=== PATIENT | female | born 1970 | race Caucasian/White ===

== ENCOUNTER 2022-10-17 17:24 | Emergency (ER) | payer OTHER, SELFPAY ==
[2022-10-17 17:28] VITALS: BP 134/86; PULSE 84; RESP 20; TEMP 36.7; O2SAT 96; BMI 21.5
[2022-10-17 18:09] VITALS: PULSE 81; O2SAT 95
[2022-10-17 18:15] VITALS: PULSE 82; O2SAT 95
[2022-10-17 18:30] VITALS: PULSE 77; O2SAT 93
[2022-10-17 18:34] VITALS: PULSE 80; O2SAT 95
[2022-10-17] MEDS: KETOROLAC 30 MG/ML inj 45 MG IVP (18:37)
[2022-10-17] MEDS: LORazepam 2 MG/ML inj 1 MG IVP (18:37)
[2022-10-17] MEDS: 0.9 % SODIUM CHLORIDE 1000 ml 1,000 ML 3000 ML IV (18:38)
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
--- NOTE | 2022-10-17 19:28 | ED.NURSE ---
Patient had a large incontinent episode on the floor after waking up from a deep sleep. Rather than using call button, stood up and tried to urinate in closest container normally used for suction. Patient was assisted with hygiene and returned to bed.
--- NOTE | 2022-10-17 20:13 | ED.NURSE ---
DC pt, friend in room helping pt get dressed. IV removed, cath intact.
== END 2022-10-17 20:25 | disposition home or self-care (01) ==
PROVIDERS: Emergency Provider Family Medicine
DX: G90.50 Complex regional pain syndrome I, unspecified (principal); F43.9 Reaction to severe stress, unspecified
CPT/HCPCS: 93005; 96361; 96374; 96375; 99284; J1885; J2060; J7030

== ENCOUNTER 2023-05-09 20:02 | Outpatient (CLI) | payer MEDICAID, SELFPAY | END 2023-05-09 20:03 | disposition home or self-care (01) | LOC: AMB 05-14 17:32 | PROVIDERS: Visit Provider Internal Medicine | DX: S09.90XA Unspecified injury of head, initial encounter (principal); W07.XXXA Fall from chair, initial encounter; Y92.009 Unspecified place in unspecified non-institutional (private) residence as the place of occurrence of the external cause | CPT/HCPCS: A0998 ==

== ENCOUNTER 2023-05-18 01:56 | Emergency (ER) | payer MEDICAID, SELFPAY ==
[2023-05-18 02:14] VITALS: BP 121/77; PULSE 75; RESP 18; TEMP 36.6; O2SAT 100
--- NOTE | 2023-05-18 02:25 | ED_ITS ---
HPI - General Adult General Chief complaint: Extremity Pain/Injury, Upper Stated complaint: left side numbness Time Seen by Provider: 05/18/23 02:31 Source: patient Mode of arrival: ambulatory Limitations: no limitations History of Present Illness HPI narrative: 52-year-old female presents the emergency department for evaluation of difficulty using her left upper extremity for [address] scanner is down, she was clearly explained this in triage. Discussed that we cannot perform a stroke or TIA workup due to these limitations. She does not want a referral or transfer to a center that can perform a stroke workup and understands the risks and benefits of this. Patient reports that she fell out of her office chair 1 week ago today. She reports that she does take a lot of neurological medications and has had thorough workup for multiple conditions. She reports a history of carpal tunnel and also complex regional pain syndrome. She comes in because it is difficult to use her left wrist but then she is also telling me that her left arm and leg are extremely sensitive to touch. It is clear that as she is explaining this that much of this is a chronic issue that seems to be worsened since the fall. She is concerned about a possible wrist fracture. She has self applied a brace but does not know why her weakness is not improving. She can move the arm at the shoulder and the elbow but notes difficulty abducting her wrist. Has not tried taking any additional pain medication than what she is already prescribed. Denies alcohol or intoxication at the time of the fall. Reports that EMS was called. It sounds as though she declined transfer and they were okay with that based on symptoms on the scene. It is unclear why she has not sought medical care in the last week until coming into the emergency room in the middle of the night. Denies interval worsening. It is a bit difficult to sort out her story is she does go on extensively about chronic carpal tunnel issues and need for repeat surgery on the right side which is non pertinent to her acute left-sided concerns today. Denies medical changes like difficulty speaking, cardiac or pulmonary changes. Notes no difficulty moving her left leg or ambulating but does have extreme tenderness to touch of the skin of the left leg and the left arm. She contradicts herself several times on whether this is chronic or acute. I get the impression it has been worse since the fall. No swelling to the left wrist, she is not able to localize an area of point bony tenderness for me on the wrist per rather reiterates diffuse severe tenderness to touch in the left upper extremity. It seems more localized to the dorsal aspect of the arm than the palmar aspect. She states that her past medical history is notable for chronic pain, sounds like complex regional pain syndrome. Her home medications are verified as accurate as listed in the EMR. Notable for NSAIDs, pretty high dose of gabapentin, amitriptyline, tramadol and Topamax. Other than the pain and arm movement difficulties, states that her medical problems are stable times 12 systems. Related Data Home Medications Medication Instructions Recorded Confirmed amitriptyline 25 mg tablet 25 mg PO DAILY 10/17/22 10/17/22 celecoxib 200 mg capsule 200 mg PO DAILY 10/17/22 10/17/22 cholecalciferol (vitamin D3) 50 2,000 unit PO DAILY 10/17/22 10/17/22 mcg (2,000 unit) capsule (Vitamin D3) gabapentin 300 mg capsule 900 mg PO Q12H 10/17/22 10/17/22 meloxicam 15 mg tablet 15 mg PO DAILY 10/17/22 10/17/22 oxybutynin chloride 5 mg 5 mg PO DAILY 10/17/22 10/17/22 tablet,extended release 24 hr progesterone micronized 100 mg 100 mg PO HS 10/17/22 10/17/22 capsule (Prometrium) topiramate 50 mg capsule,extended 50 mg PO DAILY 10/17/22 10/17/22 release 24 hr tramadol 50 mg tablet 50 mg PO DAILY 10/17/22 10/17/22 Allergies Allergy/AdvReac Type Severity Reaction Status Date / Time prednisone Allergy Verified 10/17/22 17:36 [facility] Social History Smoking Status: Current every day smoker What tobacco products do you use: cigarettes Do you use any of these nicotine containing products: None Second hand tobacco smoke exposure: No How often do you have a drink containing alcohol: never AUDIT-C Alcohol total score: 0 Non-prescribed substance use: denies use Exam Const: Vital Signs, click to edit/add: Vital Signs - 24 hr 05/18/23 02:14 05/18/23 04:46 Temperature 97.8 F Pulse Rate [Pulse Oximeter] 75 71 Respiratory Rate 18 14 Blood Pressure [Ri ght Upper Arm] 121/77 99/62 Pulse Oximetry 100 93 Oxygen Delivery Me thod Room Air Room Air Documenting provider has reviewed patient's vital signs: yes Other: Has difficulty telling a longitudinal story. Difficulty sorting out acute versus chronic symptoms. She is however very polite and cooperative. Appears well nourished, well hydrated and nontoxic. No signs of intoxication. HENMT: Common normals: normocephalic and head/scalp atraumatic Head and scalp: normocephalic and atraumatic Mouth: oral and palatal mucosa normal Eye: Common normals: conjunctivae normal General eye: normal appearance of both eyes Conjunctiva: conjunctiva(e) normal Neck & C-Spine: Other: Cervical spine exam is difficult. There is some chronic increased cervical lordosis but also tenderness to palpation of the skin, paraspinal muscles throughout the exam field. There was no obvious step-off, deformity of the cervical spine or point bony tenderness that was out of proportion to all of the other areas tested. She does have normal rotation of the neck but reports pain with movement. Spondylosis testing was negative. Resp: Common normals: normal respiratory effort, no use of accessory muscles and clear to auscultation bilaterally Effort & inspection: able to speak in complete sentences Auscultation: clear to auscultation bilaterally Cardio: Common normals: regular rate, regular rhythm, S1 normal heart sound, S2 normal heart sound and no murmurs Rate: regular rate Rhythm: regular rhythm Heart sounds: S1 normal and S2 normal Extremity: Other: The left shoulder has normal range of motion and strength. Left elbow has normal range of motion and strength. She has difficulty dorsiflexing the left wrist and difficulty with abduction and adduction of fingers. She is tender to palpation of the skin throughout the arm, making exam difficult. Distracting her to reassess strength in the dorsal aspect of the forearm and hand is difficult due to her sensitivity to touch. There are signs of chronic muscle wasting making me question the chronicity of this. She can freely move the right upper extremity with no difficulty but does report some pain with doing so. The left lower extremity can flex and move normally on command and I do observe her walking normally into exam room 8. Psych: Attitude: engaged Insight: fair Judgement: fair Skin: Common normals: no rashes or lesions noted General skin exam: no rashes or lesions noted Course Course ED Course: Differential diagnosis includes stroke, cervical injury, peripheral nerve injury, chronic peripheral neuropathy, sprain of the wrist, elbow injury, multiple others. It is difficult to follow her story as she talks about both acute and chronic things with mixed timeline. She is restful and comfortable. She does not need any interventions for pain at this time. Recommended x-ray of the wrist to look into further possible injury. Reiterated again that we do not have the ability to perform stroke and further neurological workup such as on her cervical spine. I did offer transfer to a medical center that would have these capabilities and she has declined this. She does verbalize understanding and agreement of this choice. Reevaluation(s) Time of Reevaluation #1: 05:42 Reevaluation #1: Reviewed x-ray findings with patient. Reiterated again that I have concerns with long-term neurological issues in her arm. These do seem more chronic than acute. She verbalizes understanding uneven gives me some reassurance that she has been told this before as well. There are no signs of acute bony injury to the hand or wrist. She needs further neurological workup, none of which will change in the middle of the night a week after this injury. She will make her follow-up with her primary care provider and schedule appropriate further neurological testing and workup. All questions answered. She verbalizes understanding and agreement. Vital Signs Vital signs: Initial Vital Signs Temperature 97.8 F 05/18/23 02:14 Temperature Source Temporal Artery Scan 05/18/23 02:14 Pulse Rate 75 05/18/23 02:14 Respiratory Rate 18 05/18/23 02:14 Blood Pressure 121/77 05/18/23 02:14 Blood Pressure Mean 91 05/18/23 02:14 Blood Pressure Position Supine 05/18/23 02:14 Pulse Oximetry 100 05/18/23 02:14 Oxygen Delivery Method Room Air 05/18/23 02:14 Vital Signs Temperature 97.8 F 05/18/23 02:14 Pulse Rate 75 05/18/23 02:14 Respiratory Rate 18 05/18/23 02:14 Blood Pressure 121/77 05/18/23 02:14 Pulse Oximetry 100 05/18/23 02:14 Oxygen Delivery Method Room Air 05/18/23 02:14 Temperature 97.8 F 05/18/23 02:14 Pulse Rate 71 05/18/23 04:46 Respiratory Rate 14 05/18/23 04:46 Blood Pressure 99/62 05/18/23 04:46 Pulse Oximetry 93 05/18/23 04:46 Oxygen Delivery Method Room Air 05/18/23 04:46 Discharge Plan Discharge Clinical Impression: Sprain and strain of wrist Patient Disposition: Home, Self-Care Condition: Stable Instructions: Wrist Sprain (ED) Additional Instructions: As we discussed, we do not have the ability to do a full neurological workup in the emergency department tonight because our CT scanner is down. You were agreeable to a limited workup because of this. There are no signs of fracture of your wrist on your x-ray. I do have concerns for neurological issues in your arm. These seem more chronic to me than acute. I would recommend that you make a follow-up appointment with your primary care provider and schedule and EMG of the left upper extremity. This will give us more information about the abnormal sensation and nerve function in your forearm. Since the injury has been over a week, there is nothing that needs to be done emergently in the middle of the night but additional workup is needed. Please schedule the appropriate follow- up appointment as soon as possible. In the meantime, it is okay to use Tylenol and/or ibuprofen. I would like for you to continue to wear the brace for another 7 days, then remove. If you have sudden worsening in your neurological function, please come back to the emergency department. Activity Level: Activity as Tolerated Discharge Diet: Regular Prescriptions: No Action meloxicam 15 mg tablet 15 mg PO DAILY progesterone micronized [Prometrium] 100 mg capsule 100 mg PO HS Rx Instructions: off 7 days; repeat cycle tramadol 50 mg tablet 50 mg PO DAILY gabapentin 300 mg capsule 900 mg PO Q12H cholecalciferol (vitamin D3) [Vitamin D3] 50 mcg (2,000 unit) capsule 2,000 unit PO DAILY oxybutynin chloride 5 mg tablet extended release 24hr 5 mg PO DAILY celecoxib 200 mg capsule 200 mg PO DAILY amitriptyline 25 mg tablet 25 mg PO DAILY topiramate 50 mg capsule,extended release 24hr 50 mg PO DAILY Follow Up/Referrals: Provider,Not a Local [Primary Care Provider] - Stand Alone Forms: [employer] Info Instructions
--- NOTE | 2023-05-18 02:57 | CRLHL7_ITS ---
For Patients: As a result of the Century Cures Act, medical imaging exams and procedure reports are released immediately into your electronic medical record. You may view this report before your referring provider. If you have questions, please contact your health care provider. INDICATION: Fall, wrist pain. COMPARISON: None available. TECHNIQUE: Three views of the left wrist. FINDINGS: Alignment is anatomic and joint spaces are maintained. No acute fracture. Bone density is normal. Soft tissues are unremarkable. IMPRESSION: No acute osseous abnormality identified. Radiographs have low sensitivity in detecting acute scaphoid fractures. If the patient has snuffbox tenderness, recommend immobilization and repeat radiographs in 10-14 days. Alternatively, MRI could be performed to evaluate for occult scaphoid fracture. Dictated by Raisa Knight MD @ 05/18/2023 5:37:40 AM (Electronically Signed)
[2023-05-18 04:46] VITALS: BP 99/62; PULSE 71; RESP 14; O2SAT 93
--- NOTE | 2023-05-18 05:55 | PC.NURSE ---
pateint DC ambulatory w/o difficulty, patient given ride by her friend. stated understanding to DC instructions w/o further question
== END 2023-05-18 05:48 | disposition home or self-care (01) ==
PROVIDERS: Emergency Provider Family Medicine
DX: S63.502A Unspecified sprain of left wrist, initial encounter (principal); W19.XXXA Unspecified fall, initial encounter
CPT/HCPCS: 73110; 99283

== ENCOUNTER 2023-12-23 15:28 | Outpatient (CLI) | payer MEDICAID, SELFPAY ==
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
--- OUTSIDE RECORDS SUMMARY | 2023-12-24 17:40 | XMS_ITS | Encounter Summary ---
Author Name Unknown Organization [facility] Address [address] [place] [address] Care Team Providers Care Console Operator Name Role Phone Asif Genao MD Primary Care Provider [phone] Encounter Details Date Type Department Care Team (Latest Contact Info) Description 05/10/1996 Orders Only Kendell Rahman [facility] [address] [facility] [address] Social History Tobacco Use Types Packs/Day Years Used Date Smoking Tobacco: Never Assessed Sex and Gender Information Value Date Recorded Sex Assigned at Not on file Gender Identity Not on file Sexual Orientation Not on file documented as of this encounter Plan of Treatment Not on file documented as of this encounter Visit Diagnoses Not on filedocumented in this encounter Care Teams Console Operator Relationship Specialty [place] [address] [place], [place] [id number] PCP - General Family Practice 08/05/23 documented as of this encounter
--- OUTSIDE RECORDS SUMMARY | 2023-12-24 17:40 | XMS_ITS | Encounter Summary ---
Author Name Unknown Organization [facility] Address [address] [place] [address] Care Team Providers Care Diesel Dinkey Engineer Name Role Phone Asif Genao MD Primary Care Provider [phone] Encounter Details Date Type Department Care Team (Latest Contact Info) Description 08/21/1995 Orders Only Randell Gasca MD [facility] [address] [place] [address] Social History Tobacco Use Types Packs/Day Years Used Date Smoking Tobacco: Never Assessed Sex and Gender Information Value Date Recorded Sex Assigned at Not on file Gender Identity Not on file Sexual Orientation Not on file documented as of this encounter Plan of Treatment Not on file documented as of this encounter Visit Diagnoses Not on filedocumented in this encounter Care Teams Diesel Dinkey Engineer Relationship Specialty [place] [address] [place] [address] PCP - General Family Practice 08/05/23 documented as of this encounter
--- OUTSIDE RECORDS SUMMARY | 2023-12-24 17:40 | XMS_ITS | Clinical Summary ---
Author Name Unknown Organization [facility] Address [address] [place] [address] Care Team Providers Care Produce Service Team Member Name Role Phone [facility] Primary Care Provider Allergies Active Allergy Reactions Criticality Noted Date Comments Prednisolone Anaphylaxis High 07/15/2019 Medications Medication Sig Dispensed Refills Start Date End Date Status ALPRAZolam (XANAX) 1 MG tablet Take 1 mg by mouth 4 times daily as needed for anxiety Active ARIPiprazole (ABILIFY) 2 MG tablet Take 2 mg by mouth daily Active gabapentin (NEURONTIN) 300 MG capsule Take 900 mg by mouth 3 times daily as needed for neuropathic pain Active traZODone (DESYREL) 50 MG tablet Take 50 mg by mouth at bedtime Active cyclobenzaprine (FLEXERIL) 10 MG tablet Take 10 mg by mouth every evening as needed for muscle spasms Active DULoxetine (CYMBALTA) 60 MG capsule Take 60 mg by mouth daily Active acetaminophen (TYLENOL) 325 MG tablet Take 650 mg by mouth every 6 hours as needed for mild pain 07/31/2020 Active naloxone (NARCAN) 4 MG/0.1ML nasal spray Hickman 1 spray (4 mg) into one nostril alternating nostrils as needed for opioid reversal every 2-3 minutes until assistance arrives 0.2 mL 12/12/2021 Active oxybutynin (DITROPAN) 5 MG tablet Take 5 mg by mouth daily as needed Active estradiol (ESTRACE) 0.5 MG tablet Take 0.5 mg by mouth as needed (menopause symptoms) Active NONFORMULARY Apply topically as needed (apply topically twice daily to painful spots on right wrist and feet) RUBINA 2 DHEERAJ 5 LIDO HCL 5% CRM- compounded drug Active ciprofloxacin (CIPRO) 500 MG tabletIndications:U rinary tract infection with hematuria, site unspecified Take 1 tablet (500 mg) by mouth 2 times daily 20 tablet 06/27/2023 Active Active Problems Problem Noted Date Diagnosed Date Thrombocytopenia (H24) 06/25/2023 Encephalopathy 06/25/2023 Septic shock 06/25/2023 Pneumonia of left lower lobe due to infectious o rganism 06/25/2023 Closed fracture of multiple ribs of left side, initial encounter 07/29/2020 Major depressive disorder, recurrent, mild (H24) 10/05/2018 History of ITP 01/27/2017 Migraine 01/27/2017 Drug abuse 12/15/2016 Overview: Received note from [facility]. Patient seen on 12/11/16 for drug use. Relapsed with methamphetamine and alcohol. Outpatient chemical dependency treatment recommended. Patient has stopped taking medications from mental health. Backache 12/07/2013 Anxiety 06/26/2013 Graves' disease 06/26/2013 Idiopathic thrombocytopenic purpura 06/26/2013 Von Willebrand disease 06/26/2013 Overview: Overview: She was given the diagnosis of vWD in [place]. However, testing here in 04/2008 and 07/2013 was normal, making vWD unlikely. She was given the diagnosis of vWD in [place]. However, testing here in 04/2008 and 07/2013 was normal, making vWD unlikely. Agoraphobia with panic disorder 04/17/2008 Other bipolar disorder 04/17/2008 Family History Relation Status Comments Brother Alive Daughter Alive Father Alive Maternal Grandfather Maternal Grandmother Mother Other Alive Paternal Grandfather Paternal Grandmother Sister Social History Tobacco Use Types Packs/Day Years Used Date Smoking Tobacco: Every Day Cigarettes Smokeless Tobacco: Never Alcohol Use Standard Drinks/Week Comments Yes 0 (1 standard drink = 0.6 oz pur e alcohol) very rarely PHQ-2 Answer Date Recorded PHQ-2 Score 6 12/09/2022 Adolescent Education Answer Date Record ed Getting School Help Needed Not on file 05/22 Sex and Gender Information Value Date Recorded Sex Assigned at Female 12/09/2022 12:28 PM CDT Gender Identity Female 12/09/2022 12:28 PM CDT Sexual Orientation Straight 12/09/2022 12 :28 PM CDT Last Filed Vital Signs Vital Sign Reading Time Taken Comments Blood Pressure 136/88 06/27/2023 12:00 PM DEVELOPMENT INTERN Pulse 73 06/27/2023 12:00 PM DEVELOPMENT INTERN Temperature 36.9 ??C (98.4 ??F) 06/27/2023 12:[address] Respiratory Rate 30 06/27/2023 10:00 AM DEVELOPMENT INTERN Oxygen Saturation 88% 06/27/2023 12:00 PM DEVELOPMENT INTERN Inhaled Oxygen Concentration - - Weight 59 kg (130 lb) 06/25/2023 9:24 AM DEVELOPMENT INTERN Height 162.6 cm (5' 4) 12/09/2022 10:40 AM CDT Body Mass Index 22.31 12/09/2022 10:40 AM CDT Plan of Treatment Health Maintenance Due Date Last Done Comments ADVANCE CARE PLANNING 1968 ANNUAL REVIEW OF HM ORDERS 1968 CT COLONOGRAPHY 1968 FIT 1968 FLEX SIG 1968 MAMMO SCREENING 1968 NICOTINE/TOBACCO CESSATION COUNSELING Q 1 YR 1968 sDNA (Cologuard) 1968 Pneumococcal Vaccine: Pediatrics (0 to 5 Years) and At-Risk Patients (6 to 64 Years) (1 of 2 - PCV) 1974 COLONOSCOPY 1978 COLORECTAL CANCER SCREENING 1978 HIV SCREENING 1983 HEPATITIS C SCREENING 1986 PAP 1989 DTAP/TDAP/TD IMMUNIZATION (1 - Tdap) 09/06/1997 09/05/1997 LIPID 2008 ZOSTER IMMUNIZATION (1 of 2) 2018 HEPATITIS B IMMUNIZATION (2 of 2 - CpG 2-dose series) 11/15/2022 10/18/2022 COVID-19 Vaccine (1 - season) 2023 YEARLY PREVENTIVE VISIT 10/19/2023 10/18/2022 INFLUENZA VACCINE (Season Ended) 2024 05/09/2015 LUNG CANCER SCREENING 06/25/2024 06/25/2023 , 07/29/2020, 12/11/2019 GLUCOSE 06/27/2026 06/27/2023, 06/10, 06/27/2023, Additional history exists HPV IMMUNIZATION Aged Out No longer e ligible based on patient's age to complete this topic IPV IMMUNIZATION Aged Out No longer e ligible based on patient's age to complete this topic MENINGITIS IMMUNIZATION Aged Out No l onger eligible based on patient's age to complete this topic RSV MONOCLONAL ANTIBODY Aged Out No l onger eligible based on patient's age to complete this topic Medical Devices Implanted Type Area Care Transport Nurse Device Identifier Shelf Expiration Date Model / Serial / Lot Trial Lead Kit Implanted:Qty: 1 on 07/15/2019 by Ajith Laura MD at [facility] Right: Back [employer] 05/31/2021 DE-2316-50 E / [id number] / Trial Lead Kit Implanted:Qty: 1 on 07/15/2019 by Ajith Laura MD at [facility] Right: Back [employer] 06/01/2021 DE-2316-50 E / [id number] / Procedures Procedure Name Priority Date/Time Associated Diagnosis Comments GLUCOSE BY METER Routine 06/27/2023 4:[address] CHEST PULMONARY EMBOLISM W CONTRAST STAT 06/25/2023 5:56 PM DEVELOPMENT INTERN from Last 3 Months or Most Recently Relevant to Health Maintenance Results * (ABNORMAL) Glucose by meter (06/27/2023 4:15 AM DEVELOPMENT INTERN) [facility] GLUCOSE BY METER POCT 113(H) 70 - 99 mg/dL 06/27/2023 4:21 AM DEVELOPMENT INTERN LABORATORY POC Blood, Capillary BLOOD SPECIMEN / Unknown 06/27/2023 4:15 AM DEVELOPMENT INTERN 06/27/2023 4:21 AM DEVELOPMENT INTERN Lee HOWELL POCT RH LABORATORY POC [facility] Acute Care Lab [address] [facility] Lab (1st floor, no room number) [place] [address], [facility] [phone] * CT Chest Pulmonary Embolism w Contrast (06/25/2023 5:56 PM DEVELOPMENT INTERN) Anatomical Region Laterality Modality Chest, SUBRAD CT BODY, UMP CT CHEST Computed Tomography 06/25/2023 5:56 PM DEVELOPMENT INTERN Impressions 06/25/2023 6:31 PM DEVELOPMENT INTERN IMPRESSION: 1. ??No evidence for pulmonary emboli. 2. ??Atelectasis involving portions of both upper and lower lobes. Otherwise no acute pulmonary disease. 3. ??Stable, enlarged thyroid gland. 4. ??Hypervascular lesions peripheral cortex of both kidneys could be related to retained contrast from CT abdomen and pelvis performed earlier today. Acute tubular necrosis could potentially have this appearance. Correlation with renal function tests recommended. Narrative 06/25/2023 6:31 PM DEVELOPMENT INTERN EXAM: CT CHEST PULMONARY EMBOLISM W CONTRAST LOCATION: [facility] DATE: 06/25/2023 INDICATION: hypoxia, hypotension COMPARISON: CTA chest 07/29/[address] abdomen and pelvis from earlier today. TECHNIQUE: CT chest pulmonary angiogram during arterial phase injection of IV contrast. Multiplanar reformats and MIP reconstructions were performed. Dose reduction techniques were used. CONTRAST: 52mL Isovue 370 FINDINGS: ANGIOGRAM CHEST: Pulmonary arteries are normal caliber and negative for pulmonary emboli. Thoracic aorta is negative for dissection. No CT evidence of right heart strain. LUNGS AND PLEURA: Moderate dependent atelectasis posterior aspects of both lower lobes, with less extensive dependent atelectasis in the upper lobes. No acute infiltrates or pleural effusions. A few tiny pulmonary nodules are unchanged. MEDIASTINUM/AXILLAE: A few borderline-enlarged mediastinal and bilateral hilar nodes minimally changed. Diffuse enlargement of the thyroid gland, unchanged. CORONARY ARTERY CALCIFICATION: Minimal UPPER ABDOMEN: Numerous small hyperdensities within the peripheral cortex of both kidneys are not seen on delayed imaging on dedicated abdomen exam from today. Small cyst upper pole right kidney. MUSCULOSKELETAL: Breast implants. Procedure Note [place] MD - 06/25/2023 EXAM: CT CHEST PULMONARY EMBOLISM W CONTRAST LOCATION: [facility] DATE: 06/25/2023 INDICATION: hypoxia, hypotension COMPARISON: CTA chest 07/29/[address] abdomen and pelvis from earliertoday. TECHNIQUE: CT chest pulmonary angiogram during arterial phase injection ofIV contrast. Multiplanar reformats and MIP reconstructions were performed.Dose reduction techniques were used. CONTRAST: 52mL Isovue 370 FINDINGS: ANGIOGRAM CHEST: Pulmonary arteries are normal caliber and negative forpulmonary emboli. Thoracic aorta is negative for dissection. No CTevidence of right heart strain. LUNGS AND PLEURA: Moderate dependent atelectasis posterior aspects of bothlower lobes, with less extensive dependent atelectasis in the upper lobes.No acute infiltrates or pleural effusions. A few tiny pulmonary nodulesare unchanged. MEDIASTINUM/AXILLAE: A few borderline-enlarged mediastinal and bilateralhilar nodes minimally changed. Diffuse enlargement of the thyroid gland,unchanged. CORONARY ARTERY CALCIFICATION: Minimal UPPER ABDOMEN: Numerous small hyperdensities within the peripheral cortexof both kidneys are not seen on delayed imaging on dedicated abdomen examfrom today. Small cyst upper pole right kidney. MUSCULOSKELETAL: Breast implants. IMPRESSION: 1. No evidence for pulmonary emboli. 2. Atelectasis involving portions of both upper and lower lobes.Otherwise no acute pulmonary disease. 3. Stable, enlarged thyroid gland. 4. Hypervascular lesions peripheral cortex of both kidneys could berelated to retained contrast from CT abdomen and pelvis performed earliertoday. Acute tubular necrosis could potentially have this appearance.Correlation with renal function tests recommended. Tommy Dueñas MD [facility] [place] ORDER[place]LES from Last 3 Months or Most Recently Relevant to Health Maintenance Advance Directives For more information, please contact: [phone] * Full Code (Latest Code Status on File) Date Activated Date Inactivated Comments 06/25/2023 7:41 PM 06/27/2023 6:02 PM All basic and advanced life-sustaining interventions are performed as appropriate Question Answer Comments Code status determined by: Discussion with cke nt/ legal decision maker * Full Code Date Activated Date Inactivated Comments 07/29/2020 8:18 PM 07/31/2020 6:43 PM All basic and advanced life-sustaining interventions are performed as appropriate Question Answer Comments Code status determined by: Discussion with cke nt/ legal decision maker Care Teams Produce Service Team Member Relationship Specialty Start Date End Date [facility] [id number] [place] [address] PCP - General 05/22/23
--- OUTSIDE RECORDS SUMMARY | 2023-12-24 17:40 | XMS_ITS | Encounter Summary ---
Author Name Unknown Organization [facility] Address [address] [place] [address] Care Team Providers Care Dump Motorman Name Role Phone Asif Genao MD Primary Care Provider Encounter Details Date Type Department Care Team (Latest Contact Info) Description 05/31/1996 Orders Only Ángel Moe MD Social History Tobacco Use Types Packs/Day Years Used Date Smoking Tobacco: Never Assessed Sex and Gender Information Value Date Recorded Sex Assigned at Not on file Gender Identity Not on file Sexual Orientation Not on file documented as of this encounter Plan of Treatment Not on file documented as of this encounter Visit Diagnoses Not on filedocumented in this encounter Care Teams Dump Motorman Relationship Specialty [place] [address] [place] [address] PCP - General Family Practice 08/05/23 documented as of this encounter
--- OUTSIDE RECORDS SUMMARY | 2023-12-24 17:40 | XMS_ITS | Encounter Summary ---
Author Name Unknown Organization [facility] Address [address] [place] [address] Care Team Providers Care Pan Cleaner Name Role Phone Asif Genao MD Primary Care Provider [phone] Encounter Details Date Type Department Care Team (Latest Contact Info) Description 06/14/1997 Orders Only Brian Augustin MD [address] [place] [address] Social History Tobacco Use Types Packs/Day Years Used Date Smoking Tobacco: Never Assessed Sex and Gender Information Value Date Recorded Sex Assigned at Not on file Gender Identity Not on file Sexual Orientation Not on file documented as of this encounter Plan of Treatment Not on file documented as of this encounter Visit Diagnoses Not on filedocumented in this encounter Care Teams Pan Cleaner Relationship Specialty [place] [address] [place] [address] PCP - General Family Practice 08/05/23 documented as of this encounter
--- OUTSIDE RECORDS SUMMARY | 2023-12-24 17:40 | XMS_ITS | Encounter Summary ---
Author Name Unknown Organization [facility] Address [address] [place] [address] Care Team Providers Care Chief Bank Examiner Name Role Phone Asif Genao MD Primary Care Provider [phone] Encounter Details Date Type Department Care Team (Latest Contact Info) Description 11/24/1995 Orders Only Kendell Rahman [facility] [address] [facility] [address] Social History Tobacco Use Types [...] on filedocumented in this encounter Care Teams Chief Bank Examiner Relationship Specialty [place] [address] [place], [place] [id number] PCP - General Family Practice 08/05/23 documented as of this encounter
--- OUTSIDE RECORDS SUMMARY | 2023-12-24 17:40 | XMS_ITS | Referral Summary ---
Author Name Unknown Organization [facility] Address [address] [place] [address] Care Team Providers Care Cash Teller Name Role Phone [facility] Primary Care Provider Allergies Active Allergy [...] Active naloxone (NARCAN) 4 MG/0.1ML nasal spray Anderson 1 spray (4 mg) into one nostril [...] Drug abuse 12/15/2016 Overview: Received note from [facility]. Patient seen on 12/11/16 for drug use. Relapsed with methamphetamine and alcohol. Outpatient chemical dependency treatment recommended. Patient has stopped taking medications from mental health. Backache 12/07/2013 Anxiety 06/26/2013 Graves' disease 06/26/2013 Idiopathic thrombocytopenic purpura 06/26/2013 Von Willebrand disease 06/26/2013 Overview: Overview: She was given the diagnosis of vWD in [place]. However, testing here in 04/2008 and 07/2013 was normal, making vWD unlikely. She was given the diagnosis of vWD in [place]. However, testing here in 04/2008 and 07/2013 was normal, making vWD unlikely. Agoraphobia with panic disorder 04/17/2008 Other bipolar disorder 04/17/2008 Social History Tobacco Use Types Packs/Day Years [...] Comments Blood Pressure 136/88 06/27/2023 12:00 PM CITY MAINTENANCE MANAGER Pulse 73 06/27/2023 12:00 PM CITY MAINTENANCE MANAGER Temperature 36.9 ??C (98.4 ??F) 06/27/2023 12:[address] Respiratory Rate 30 06/27/2023 10:00 AM CITY MAINTENANCE MANAGER Oxygen Saturation 88% 06/27/2023 12:00 PM CITY MAINTENANCE MANAGER Inhaled Oxygen Concentration - - Weight 59 kg (130 lb) 06/25/2023 9:24 AM CITY MAINTENANCE MANAGER Height 162.6 cm (5' 4) 12/09/2022 10:40 AM CDT Body Mass Index 22.31 12/09/2022 10:40 AM CDT Plan of Treatment Not on file Medical Devices Implanted Type Area Engineering Instructor Device Identifier Shelf Expiration Date Model / Serial / Lot Trial Lead Kit Implanted:Qty: 1 on 07/15/2019 by Ajith Laura MD at [facility] Right: Back [employer] 05/31/2021 WI-2316-50 E / [id number] / Trial Lead Kit Implanted:Qty: 1 on 07/15/2019 by Ajith Laura MD at [facility] Right: Back [employer] 06/01/2021 WI-2316-50 E / [id number] / Procedures Procedure Name Priority Date/Time Associated Diagnosis Comments GLUCOSE BY METER Routine 06/27/2023 4:15 AM CITY MAINTENANCE MANAGER CT CHEST PULMONARY EMBOLISM W CONTRAST STAT 06/25/2023 5:56 PM CITY MAINTENANCE MANAGER from Last 3 Months or Most Recently Relevant to Health Maintenance Results * (ABNORMAL) Glucose by meter (06/27/2023 4:15 AM CITY MAINTENANCE MANAGER) GLUCOSE BY METER POCT 113(H) 70 - 99 mg/dL 06/27/2023 4:21 AM CITY MAINTENANCE MANAGER RH LABORATORY POC Blood, Capillary BLOOD SPECIMEN / Unknown 06/27/2023 4:15 AM CITY MAINTENANCE MANAGER 06/27/2023 4:21 AM CITY MAINTENANCE MANAGER Lee BEARD - DANTE POCT LABORATORY [facility] Acute Care Lab [address] Lab (1st floor, no room number) [place] [address], [facility] [phone] * CT Chest Pulmonary Embolism w Contrast (06/25/2023 5:56 PM CITY MAINTENANCE MANAGER) Anatomical Region Laterality Modality Chest, SUBRAD CT BODY, UMP CT CHEST Computed Tomography 06/25/2023 5:56 PM CITY MAINTENANCE MANAGER Impressions 06/25/2023 6:31 PM CITY MAINTENANCE MANAGER IMPRESSION: 1. ??No evidence for pulmonary emboli. [...] function tests recommended. Narrative 06/25/2023 6:31 PM CITY MAINTENANCE MANAGER EXAM: CT CHEST PULMONARY EMBOLISM W CONTRAST LOCATION: [facility] DATE: 06/25/2023 INDICATION: hypoxia, hypotension COMPARISON: CTA [...] CT CHEST PULMONARY EMBOLISM W CONTRAST LOCATION: [facility] DATE: 06/25/2023 INDICATION: hypoxia, hypotension COMPARISON: CTA [...] renal function tests recommended. Tommy Dueñas MD IMG CT ORDERABLES from Last 3 Months or Most Recently Relevant to Health Maintenance Advance Directives For more information, please contact: [phone] * Full Code (Latest Code Status on File) Date Activated Date Inactivated Comments 06/25/2023 7:41 PM 06/27/2023 6:02 PM All basic and advanced life-sustaining interventions are performed as appropriate Question Answer Comments Code status determined by: Discussion with soledad nt/ legal decision maker * Full Code Date Activated Date Inactivated Comments 07/29/2020 8:18 PM 07/31/2020 6:43 PM All basic and advanced life-sustaining interventions are performed as appropriate Question Answer Comments Code status determined by: Discussion with soledad nt/ legal decision maker Care Teams Cash Teller Relationship Specialty Start Date End Date [facility] [id number] [place] [id number] PCP - General 05/22/23
--- OUTSIDE RECORDS SUMMARY | 2023-12-24 17:40 | XMS_ITS | Encounter Summary ---
Author Name Unknown Organization [facility] Address [address] [place] [address] Care Team Providers Care Tire Wrapper Name Role Phone Asif Genao MD Primary Care Provider [phone] Encounter Details Date Type Department Care Team (Latest Contact Info) Description 01/25/1997 Orders Only Dasia Mendez, FINISH OPENER, LIGHT BULB REPLACER [address] [place] [address] Social History Tobacco Use Types Packs/Day Years Used Date Smoking Tobacco: Never Assessed Sex and Gender Information Value Date Recorded Sex Assigned at Not on file Gender Identity Not on file Sexual Orientation Not on file documented as of this encounter Plan of Treatment Not on file documented as of this encounter Visit Diagnoses Not on filedocumented in this encounter Care Teams Tire Wrapper Relationship Specialty [place] [address] [place] [address] PCP - General Family Practice 08/05/23 documented as of this encounter
--- OUTSIDE RECORDS SUMMARY | 2023-12-24 17:40 | XMS_ITS | Encounter Summary ---
Author Name Unknown Organization [facility] Address [address] [place] [address] Care Team Providers Care Bulldozer Mechanic Name Role Phone Asif Genao MD Primary Care Provider Encounter Details Date Type Department Care Team (Latest Contact Info) Description 11/16/1996 Orders Only Emmanuel Roberts MD Social History Tobacco Use Types Packs/Day Years Used Date Smoking Tobacco: Never Assessed Sex and Gender Information Value Date Recorded Sex Assigned at Not on file Gender Identity Not on file Sexual Orientation Not on file documented as of this encounter Plan of Treatment Not on file documented as of this encounter Visit Diagnoses Not on filedocumented in this encounter Care Teams Bulldozer Mechanic Relationship Specialty [place] [address] [place] [address] PCP - General Family Practice 08/05/23 documented as of this encounter
--- OUTSIDE RECORDS SUMMARY | 2023-12-24 17:40 | XMS_ITS | Encounter Summary ---
Author Name Unknown Organization [facility] Address [address] [address] Care Team Providers Care Tester Regulator Name Role Phone Asif Genao MD Primary Care Provider [phone] Encounter Details Date Type Department Care Team (Latest Contact Info) Description 07/14/1996 Orders Only Brian Augustin MD [address] [place] [address] Social History Tobacco Use Types Packs/Day Years Used Date Smoking Tobacco: Never Assessed Sex and Gender Information Value Date Recorded Sex Assigned at Not on file Gender Identity Not on file Sexual Orientation Not on file documented as of this encounter Plan of Treatment Not on file documented as of this encounter Visit Diagnoses Not on filedocumented in this encounter Care Teams Tester Regulator Relationship Specialty [place] [address] [place] [address] PCP - General Family Practice 08/05/23 documented as of this encounter
--- OUTSIDE RECORDS SUMMARY | 2023-12-24 17:40 | XMS_ITS | Encounter Summary ---
Author Name Unknown Organization [facility] Address [address] [place] [address] Care Team Providers Care Furrier Apprentice Name Role Phone Asif Genao MD Primary Care Provider Encounter Details Date Type Department Care Team (Latest Contact Info) Description 07/16/1995 Orders Only Edson Brownlee Social History Tobacco Use Types Packs/Day Years Used Date Smoking Tobacco: Never Assessed Sex and Gender Information Value Date Recorded Sex Assigned at Not on file Gender Identity Not on file Sexual Orientation Not on file documented as of this encounter Plan of Treatment Not on file documented as of this encounter Visit Diagnoses Not on filedocumented in this encounter Care Teams Furrier Apprentice Relationship Specialty [place] [address] [place] [address] PCP - General Family Practice 08/05/23 documented as of this encounter
--- OUTSIDE RECORDS SUMMARY | 2023-12-24 17:40 | XMS_ITS | Encounter Summary ---
Author Name Unknown Organization [place] Address [facility] [place] [address] Care Team Providers Care Precision Assembler Name Role Phone Naif Burroughs MD Primary Care Provider Unavailable Clinic, [facility] Primary Care Prov ider Clinic, [facility] Primary Care Provider Encounter Details Date Type Department Care Team ([facility] st Contact Info) Description 12/01/[address] [facility] Behavioral Health Intake [address] [place] [address] Generic, Behavioral Intake, Social History Tobacco Use Types Packs/Day Years Used Date Smoking Tobacco: Every Day Cigarettes Smokeless Tobacco: Never Alcohol Use Standard Drinks/Week Comments Yes 0 (1 standard drink = 0.6 oz pur e alcohol) very rarely Sex and Gender Information Value Date Recorded Sex Assigned at Female 12/09/2022 12:28 PM CDT Gender Identity Female 12/09/2022 12:28 PM CDT Sexual Orientation Straight 12/09/2022 12 :28 PM CDT documented as of this encounter Miscellaneous Notes * Telephone Encounter - Zo Velez, SKYLER - 12/12/2022 10:25 AM CDT The pt's My Chart is pending and so the following was sent through secure e-mail: 12/12/2022 Mariann Aguirre, It was a real pleasure meeting with you for your substance use assessment on 12/09/2022. Based on your evaluation as well as collateral information, the recommendations are as follows: ?? Abstain from the use of alcohol and all other mood-altering drugs except those prescribed by a Doctor. ?? Follow all conditions of the court including participation in the MADD panel or the Driving withCare Class if required . ?? Participate in ongoing, weekly, individual therapy(resources provided and referral made to [facility] Clinics). ?? Discuss long-term use of RX Xanax and your medication regimen with your medical providers. ?? Should you struggle with any abuse of alcohol or drugs in the future, consider an updated assessment and a higher level of care. A referral has been to [facility] for individual therapy. If you do not hear from Intake, you can call them at [phone] to be placed on the waiting list. Other resources have also been sent to you via secure e-mail. You can also check with [facility] as to any other in-network providers. Thanks, and wishing you the very best! SKYLER Hackett Licensed Alcohol and Drug Counselor Triage and Transition: Assessment Center [facility] [address] [email or web address] Office: [phone] Gender Pronouns: she/her * Telephone Encounter - Zo Velez LADC - 12/09/2022 4:12 PM CDT Per pt request resources for therapist were securely e-mailed to her along with a reminder to reachout to for in-network services. A 9035 order for therapy with a [facility] therapist was also placed inhte event she may be able to get in sooner. * Telephone Encounter - Lilian Salinas - 12/01/2022 9:34 AM CDT Pt is a(n) adult (18+ out of ) Seeking as eval for Adult CHEN Assessment for evaluation and recommendations. and is interested in Adult Evaluation only - no specific program requested. Appointment scheduled by: Patient. (If patient is self-pay, we much complete a Cost Estimate and save it to the pt chart) Caller name: Carla Caller phone #: [phone] If in person, please state reason why: n/a Brief reason for appt: Pt requested eval Cost estimate Did not get completed. 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
--- OUTSIDE RECORDS SUMMARY | 2023-12-24 17:40 | XMS_ITS | Encounter Summary ---
Author Name Unknown Organization [facility] Address [address] [place] [address] Care Team Providers Care Contact Lens Curve Grinder Name Role Phone Asif Genao MD Primary Care Provider Encounter Details Date Type Department Care Team (Latest Contact Info) Description 10/20/1995 Orders Only Karen Garcia Social History Tobacco Use Types Packs/Day Years Used Date Smoking Tobacco: Never Assessed Sex and Gender Information Value Date Recorded Sex Assigned at Not on file Gender Identity Not on file Sexual Orientation Not on file documented as of this encounter Plan of Treatment Not on file documented as of this encounter Visit Diagnoses Not on filedocumented in this encounter Care Teams Contact Lens Curve Grinder Relationship Specialty [place] [address] [place] [address] PCP - General Family Practice 08/05/23 documented as of this encounter
--- OUTSIDE RECORDS SUMMARY | 2023-12-24 17:40 | XMS_ITS | Encounter Summary ---
Author Name Unknown Organization [facility] Address [address] [place] [address] Care Team Providers Care Reweaver Name Role Phone Asif Genao MD Primary Care Provider [phone] Encounter Details Date Type Department Care Team (Latest Contact Info) Description 06/13/1996 Orders Only Randell Gasca MD [facility] [address] [place] [address] Social History Tobacco Use Types [...] on filedocumented in this encounter Care Teams Reweaver Relationship Specialty [place] [address] [place] [address] PCP - General Family Practice 08/05/23 documented as of this encounter
--- OUTSIDE RECORDS SUMMARY | 2023-12-24 17:40 | XMS_ITS | Encounter Summary ---
Author Name Unknown Organization [facility] Address [address] [place] [address] Care Team Providers Care Javascript Web Developer Name Role Phone Asif Genao MD Primary Care Provider Encounter Details Date Type Department Care Team (Latest Contact Info) Description 01/15/1996 [place] [address] [place] [address] Social History Tobacco Use Types Packs/Day Years Used Date Smoking Tobacco: Never Assessed Sex and Gender Information Value Date Recorded Sex Assigned at Not on file Gender Identity Not on file Sexual Orientation Not on file documented as of this encounter Plan of Treatment Not on file documented as of this encounter Visit Diagnoses Not on filedocumented in this encounter Care Teams Javascript Web Developer Relationship Specialty [place] [address] [place] [address] PCP - General Family Practice 08/05/23 documented as of this encounter
--- OUTSIDE RECORDS SUMMARY | 2023-12-24 17:40 | XMS_ITS | Clinical Summary ---
Author Name Unknown [facility] Address [address] [place] [address] Care Team Providers Care Chief Controller Station Name Role Phone Asif Genao MD Primary Care Provider Source Comments You are receiving this document as you are listed as the primary care provider,follow-up provider, or the patient has been referred to you for consultation.This is in compliance with the Medicare andAk[facility] Children[facility]S Hospitalcaid EHR Incentive Program,which states Providers who transition their patient to another setting of careor provider of care or refers their patient to another provider of care shouldprovide summary care record for each transition of care or referral. [facility] Allerg[facility] Active Allergy Reactions Criticality Noted Date Comments Prednisolone Anaphylaxis High 12/07/2013 PN: swelling Medications Medication Sig Dispensed Refills Start Date End Date Status ALPRAZolam (XANAX) 1 MG tablet TAKE 1 TABLET BY MOUTH FOUR TIMES DAILY NEEDED FOR ANXIETY. 120 Tablet 5 09/18/2023 Active DULoxetine (CYMBALTA) 60 MG capsuleIndications: EVA (generalized anxiety disorder) (HRC) Take 1 Capsule (60 mg) by mouth daily. 30 Capsule 5 09/18/2023 Active gabapentin (NEURONTIN) 300 MG capsule Take 3 Capsules (900 mg) by mouth two times a day. 180 Capsule 5 09/18/2023 Active Active Problems Problem Noted Date Diagnosed Date Abnormal MRI, cervical spine 05/22/2023 Overview: 05/22/23 [facility] 1. Fluid signal intensity in the right C4-C5 facet joint with fluid signal intensity and enhancement extending into the paraspinous tissue surrounding the right facet joint, raising the question of synovitis or septic arthritis. Inflammatory fluid extends into the right C4-C5 neural foramen possibly resulting in irritation of the exiting right C4 nerve root. Clinical correlation recommended. 2. Mild degenerative change of the cervical spine as detailed above. 3. No high-grade spinal canal or neural foraminal stenosis of the cervical spine. Chronic pain syndrome 10/26/2022 Elevated CK 10/26/2022 Peripheral sensory neuropathy 05/15/2022 Somatoform disorder 12/13/2021 CRPS (complex regional pain syndrome type I) Major depressive disorder, recurrent, moderate 0 10/05/2018 EVA (generalized anxiety disorder) 10/05/2018 Migraine headache 01/27/2017 Polysubstance abuse 12/15/2016 Overview: Received note from [facility]. Patient seen on 12/11/16 for drug use. Relapsed with methamphetamine and alcohol. Outpatient chemical dependency treatment recommended. Patient has stopped taking medications from mental health. Post traumatic stress disorder 02/28/2016 Hiatal hernia 09/29/2014 Tobacco use disorder 05/01/2014 Idiopathic thrombocytopenic purpura 12/07/2013 Graves disease 12/07/2013 Back pain 12/07/2013 Von Willebrand's disease 06/26/2013 Overview: Overview: She was given the diagnosis of vWD in [place]. However, testing here in 04/2008 and 07/2013 was normal, making vWD unlikely. 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 Buenrostro Moderate major depression 06/26/2013 Agoraphobia with panic disorder 04/17/2008 10/05/2018 Overview: Agoraphobia with panic disorder (ACG) Encounters Date Type Department Care Team Description 11/24/2023 Nurse Triage Careline [address] [place] [address] Unknown, Physician DEPRESSION; NEUROSIS, ANXIETY from Last 3 Months Immunizations Name Administration Dates Next Due HepB Adult (Heplisav-B, 19+ yrs, 2 dose series) 10/18/2022 Influenza IIV4 (Quadrivalent) 0.5mL (13792) 04/12 TB Skin Test (PPD) 10/11/2019,11/06/2016, 016 Td 09/05/1997 Family History Medical History Relation Name Comments Cancer, Bladder Father Asthma Mother Cancer, Colon Mother itp [Other] Daughter per patient Relation Name Status Comments Father Mother Daughter Social History Tobacco Use Types Packs/Day Years Used Date Smoking Tobacco: Every Day Cigarettes Smokeless Tobacco: Never Tobacco Cessation:Ready to Q uit: Not Asked; Counseling Given: Not Answered Alcohol Use Standard Drinks/Week Comments No 0 (1 standard drink = 0.6 oz pur e alcohol) PHQ-2 Answer Date Recorded PHQ-2 Score 2 09/18/2023 Sex and Gender Information Value Date Recorded Sex Assigned at Not on file Gender Identity Not on file Sexual Orientation Not on file Last Filed Vital Signs Vital Sign Reading Time Taken Comments Blood Pressure 99/64 05/23/2023 3:39 PM CDT Pulse 58 05/23/2023 3:39 PM CDT Temperature 36.9 ??C (98.5 ??F) 05/23/2023 3:39 PM CD T Respiratory Rate 16 05/23/2023 3:39 PM CDT Oxygen Saturation 96% 05/23/2023 3:39 PM CDT Inhaled Oxygen Concentration - - Weight 55.3 kg (121 lb 14.4 oz) 023 10:00 PM CDT Height 162.6 cm (5' 4) 05/22/2023 10:0 0 PM CDT Body Mass Index 20.92 05/22/2023 10:00 PM CDT Plan of Treatment Health Maintenance Due Date Last Done Comments Cervical Cancer Screening Due 1968 Colon Cancer Screening Plan Due 1968 Mammogram 1968 Pneumococcal (1 - PCV) 1974 HIV Screening (Preventive Services) 1984 DTaP/Tdap/Td (1 - Tdap) 09/06/1997 09/05/1997 Zoster/Shingles (1 of 2) 2018 HepB (2) 11/15/2022 10/18/2022 COVID-19 Vaccine (1 - 2022-2 4 season) 2023 Adult Preventive Visit 10/19/2023 10/18/2022 Influenza (Season Ended) 2024 05/09/2015 Cholesterol 10/19/2027 10/18/2022, 01/25/1997 Hep C Screening (Preventive Services) Completed 10/18/2022 HepA Aged Out No longer eligi ble based on patient's age to complete this topic Hib Aged Out No longer eligi ble based on patient's age to complete this topic IPV (Polio) Aged Out No longer eligi ble based on patient's age to complete this topic MCV4 Aged Out No longer eligi ble based on patient's age to complete this topic Medical Devices Implanted Type Area Novelties Sales Representative Device Identifier Shelf Expiration Date Model / Serial / Lot Plt Dvr Anatomic Shtrt - [id number] Implanted:Qty: 1 on 01/05/2019 by Magy Stephen MD at [facility] DEVICE Right: [employer] - Trauma [id number] / / Scr Dilan 3.5x12 [id number] - [id number] Implanted:Qty: 2 on 01/05/2019 by Magy Stephen MD at [facility] DEVICE Right: [employer] - Trauma [id number] / / Peg Smooth 2.0x16 - [id number] Implanted:Qty: 3 on 01/05/2019 by Magy Stephen MD at [facility] DEVICE Right: [employer] - Trauma [id number] / / Peg Smooth 2.0x18 - [id number] Implanted:Qty: 3 on 01/05/2019 by Magy Stephen MD at [facility] DEVICE Right: [employer] - Trauma [id number] / / Peg Smooth 2.0x20 - [id number] Implanted:Qty: 1 on 01/05/2019 by Magy Stephen MD at [facility] DEVICE Right: [employer] - Trauma [id number] / / Scr Dilan 3.5x10 [id number] - [id number] Implanted:Qty: 1 on 01/05/2019 by Magy Stephen MD at [facility] DEVICE Right: [employer] - Trauma [id number] / / Procedures Procedure Name Priority Date/Time Associated Diagnosis Comments HEPATITIS C ANTIBODY, WITH REFLEX Routine 10/18/2022 12:24 PM ELECTRIC GOLF CART REPAIRER Need for hepatitis C screening test LIPID PANEL & DIRECT LDL (IF NEEDED) Routine 10/18/2022 12:24 PM ELECTRIC GOLF CART REPAIRER Screening for cholesterol level from Last 3 Months or Most Recently Relevant to Health Maintenance Results * (ABNORMAL) Lipid Panel and Direct LDL(If Needed) (10/18/2022 12:24 PM ELECTRIC GOLF CART REPAIRER) Cholesterol 164 0 - 199 mg/dL 10/18/2022 2:03 PM [facility] Triglyceride 147 <=149 mg/dL 10/18/2022 2:03 PM [facility] HDL Cholesterol 37(L) >=40 mg/dL 10/18/2022 2:03 PM [facility] LDL, Calculated 98 <130 mg/dL 10/18/2022 2:03 PM [facility] Non HDL Chol, Calculated 127 <=159 mg/dL 10/18/2022 2:03 PM [facility] Cholesterol/HDL Ratio 4.4 10/18/2022 2:03 PM [facility] Hours Fasting Unknown 10/18/2022 2:03 PM [facility] Blood Venipuncture / Unknown 10/18/2022 12:24 PM ELECTRIC GOLF CART REPAIRER 10/18/2022 12:25 PM ELECTRIC GOLF CART REPAIRER [facility] [address] [place] [address] [phone] [facility] [address] [place] [address], [facility] [phone] * Hepatitis C Antibody, with Reflex (10/18/2022 12:24 PM ELECTRIC GOLF CART REPAIRER) Hepatitis C Antibody Negative (Non Reactive) Negative (Non Reactive) 10/18/2022 5:11 PM ELECTRIC GOLF CART REPAIRER [facility] Comment:Antibodies to HCV no t detected. Does not exclude the possiblity of exposure to HCV. Blood Venipuncture / Unknown 10/18/2022 12:24 PM ELECTRIC GOLF CART REPAIRER 10/18/2022 12:25 PM ELECTRIC GOLF CART REPAIRER [facility] [address] [place] [address], [facility] from Last 3 Months or Most Recently Relevant to Health Maintenance Advance Directives * Full Code (Latest Code Status on File) Date Activated Date Inactivated Comments 05/22/2023 11:05 PM 05/23/2023 10:34 PM * Full Code Date Activated Date Inactivated Comments 01/05/2019 1:21 PM 01/05/2019 6:45 PM Care Teams Chief Controller Station Relationship Specialty [place] [address] [place] [address] PCP - General Family Practice 08/05/23
== END 2023-12-23 15:29 | disposition home or self-care (01) ==
LOC: AMB 12-24 17:38
PROVIDERS: Visit Provider Family Medicine
DX: R45.851 Suicidal ideations (principal)
CPT/HCPCS: A0425; A0429

== ENCOUNTER 2023-12-28 14:58 | Outpatient (CLI) | payer MEDICAID, SELFPAY ==
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
--- OUTSIDE RECORDS SUMMARY | 2023-12-31 11:31 | XMS_ITS | Encounter Summary ---
Author Organization [place] Address [facility] [place] [address] Care Team Providers Care Stripper Cutter Machine Name Role Phone Naif Burroughs MD Primary Care Provider Unavailable Clinic, [facility] Primary Care Prov ider Clinic, [facility] Primary Care Provider Encounter Details Date Type Department Care Team ([facility] Contact Info) Description 12/01/2022 Telephone [facility] Behavioral Health Intake [address] [place] [address] Generic, Behavioral Intake, Social History [...] encounter Miscellaneous Notes * Telephone Encounter - Hernando Velez LADC - 12/12/2022 10:25 AM CDT The pt's [...] individual therapy(resources provided and referral made to [facility] Clinics). ?? Discuss long-term use of RX Xanax and your medication regimen with your medical providers. ?? Should you struggle with any abuse of alcohol or drugs in the future, consider an updated assessment and a higher level of care. A referral has been to [facility] for individual therapy. If you do not hear from Intake, you can call them at [phone] to be placed on the waiting list. Other resources have also been sent to you via secure e-mail. You can also check with [facility] as to any other in-network providers. Thanks, and wishing you the very best! SKYLER Hackett Licensed Alcohol and Drug Counselor Triage and Transition: Assessment Center [facility] [address] [email or web address] Office: [phone] Gender Pronouns: she/her * Telephone Encounter - Hernando Velez LADC - 12/09/2022 4:12 PM CDT Per pt request resources for therapist were securely e-mailed to her along with a reminder to reachout to for in-network services. A 9035 order for therapy with a [facility] therapist was also placed inhte event [...] chart) Caller name: Carla Caller phone #: [phone] If in person, please state reason why: [...] Out COVID-19 06/25/2023 06/25/2023 06/25/2023 9:14 PM [employer]ILLING GENERAL SUPERINTENDENT documented as of this encounter Care Teams Stripper Cutter Machine Relationship Specialty Start Date End Date Naif Burroughs MD PCP - General Family Practice 07/12/1901/07 [facility], [facility] Dis[facility] [address] [facility] [place] Dis[place] [address] PCP - General 01/08/23 05/21/23 [facility] [id number] [place] [id number] PCP - General 05/22/23 documented as of this encounter
--- OUTSIDE RECORDS SUMMARY | 2023-12-31 11:31 | XMS_ITS | Clinical Summary ---
Author Organization [place] Address [address] [place] [address] Care Team Providers Care Construction Engineer Name Role Phone [facility], [facility] Primary Care Provider Allergies Active Allergy [...] Active naloxone (NARCAN) 4 MG/0.1ML nasal spray [place] 1 spray (4 mg) into one nostril [...] Drug abuse 12/15/2016 Overview: Received note from [facility]. Patient seen on 12/11/16 for drug use. Relapsed with methamphetamine and alcohol. Outpatient chemical dependency treatment recommended. Patient has stopped taking medications from mental health. Backache 12/07/2013 Anxiety 06/26/2013 Graves' disease 06/26/2013 Idiopathic thrombocytopenic purpura 06/26/2013 Von Willebrand disease 06/26/2013 Overview: Overview: She was given the diagnosis of vWD in [place]. However, testing here in 04/2008 and 07/2013 was normal, making vWD unlikely. She was given the diagnosis of vWD in [place]. However, testing here in 04/2008 and 07/2013 [...] Comments Blood Pressure 136/88 06/27/2023 12:00 PM INTER COM INSTALLER Pulse 73 06/27/2023 12:00 PM INTER COM INSTALLER Temperature 36.9 ??C (98.4 ??F) 06/27/2023 12:[address] Respiratory Rate 30 06/27/2023 10:00 AM INTER COM INSTALLER Oxygen Saturation 88% 06/27/2023 12:00 PM INTER COM INSTALLER Inhaled Oxygen Concentration - - Weight 59 kg (130 lb) 06/25/2023 9:24 AM INTER COM INSTALLER Height 162.6 cm (5' 4) 12/09/2022 10:40 [...] this topic Medical Devices Implanted Type Area Test Manager Device Identifier Shelf Expiration Date Model / Serial / Lot Trial Lead Kit Implanted:Qty: 1 on 07/15/2019 by Ajith Laura MD at [facility] Right: Back [employer] 05/31/2021 GA-2316-50 E / [id number] / Trial Lead Kit Implanted:Qty: 1 on 07/15/2019 by Ajith Laura MD at [facility] Right: Back [employer] 06/01/2021 GA-2316-50 E / [id number] / Procedures Procedure Name Priority Date/Time Associated Diagnosis Comments GLUCOSE BY METER Routine 06/27/2023 4:15 [address] COM IN[address] CT CHEST PULMONARY EMBOLISM W CONTRAST STAT 06/25/2023 5:56 PM INTER COM INSTALLER from Last 3 Months or Most Recently Relevant to Health Maintenance Results * (ABNORMAL) Glucose by meter (06/27/2023 4:15 AM INTER COM INSTALLER) GLUCOSE BY METER POCT 113(H) 70 - 99 mg/dL 06/27/2023 4:21 AM INTER COM INSTALLER LABORATORY POC Blood, Capillary BLOOD SPECIMEN / Unknown 06/27/2023 4:15 AM INTER COM INSTALLER 06/27/2023 4:21 AM INTER COM INSTALLER Lee HOWELL POCT RH LABORATORY POC [facility] Acute Care Lab [address] Lab (1st floor, no room number) [place] [address], [facility] [phone] * CT Chest Pulmonary Embolism w Contrast (06/25/2023 5:56 PM INTER COM INSTALLER) Anatomical Region Laterality Modality Chest, SUBRAD CT BODY, UMP CT CHEST Computed Tomography 06/25/2023 5:56 PM INTER COM INSTALLER Impressions 06/25/2023 6:31 PM INTER COM INSTALLER IMPRESSION: 1. ??No evidence for pulmonary emboli. [...] function tests recommended. Narrative 06/25/2023 6:31 PM INTER COM INSTALLER EXAM: CT CHEST PULMONARY EMBOLISM W CONTRAST LOCATION: [facility] DATE: 06/25/2023 INDICATION: hypoxia, hypotension COMPARISON: [...] CT CHEST PULMONARY EMBOLISM W CONTRAST LOCATION: [facility] DATE: 06/25/2023 INDICATION: hypoxia, hypotension COMPARISON: [...] renal function tests recommended. Tommy Dueñas MD [facility] CT ORDERABLES from Last 3 Months or Most Recently Relevant to Health Maintenance Advance Directives For more information, please contact: [phone] * Full Code (Latest Code Status on [...] soledad nt/ legal decision maker Care Teams Construction Engineer Relationship Specialty Start Date End Date [address] [address] PCP - General 05/22/23
--- OUTSIDE RECORDS SUMMARY | 2023-12-31 11:31 | XMS_ITS | Referral Summary ---
Author Organization [place] Address [address] [place] [address] Care Team Providers Care Picking Tech Name Role Phone [facility] Primary Care Provider Allergies Active Allergy Reactions [...] Active naloxone (NARCAN) 4 MG/0.1ML nasal spray [place] 1 spray (4 mg) into one nostril [...] Drug abuse 12/15/2016 Overview: Received note from [facility]. Patient seen on 12/11/16 for drug use. Relapsed with methamphetamine and alcohol. Outpatient chemical dependency treatment recommended. Patient has stopped taking medications from mental health. Backache 12/07/2013 Anxiety 06/26/2013 Graves' disease 06/26/2013 Idiopathic thrombocytopenic purpura 06/26/2013 Von Willebrand disease 06/26/2013 Overview: Overview: [place] However, testing [place] in 04/2008 and 07/2013 was normal, making vWD unlikely. She was [place] of [place]. However, testing here in 04/2008 and 07/2013 [...] Comments Blood Pressure 136/88 06/27/2023 12:00 PM SEASONER HAND Pulse 73 06/27/2023 12:00 PM SEASONER HAND Temperature 36.9 ??C (98.4 ??F) 06/27/2023 12:[address] Respiratory Rate 30 06/27/2023 10:00 AM SEASONER HAND Oxygen Saturation 88% 06/27/2023 12:00 PM SEASONER HAND Inhaled Oxygen Concentration - - Weight 59 kg (130 lb) 06/25/2023 9:24 AM SEASONER HAND Height 162.6 cm (5' 4) 12/09/2022 10:40 AM CDT Body Mass Index 22.31 12/09/2022 10:40 AM CDT Plan of Treatment Not on file Medical Devices Implanted Type Area Gear Repairer Device Identifier Shelf Expiration Date Model / Serial / Lot Trial Lead Kit Implanted:Qty: 1 on 07/15/2019 by Ajith Laura MD at [facility] Right: Back [employer] 05/31/2021 ME-2316-50 E / [id number] / Trial Lead Kit Implanted:Qty: 1 on 07/15/2019 by Ajith Laura MD at [facility] Right: Back [employer] 06/01/2021 ME-2316-50 E / [id number] / Procedures Procedure Name Priority Date/Time Associated Diagnosis Comments GLUCOSE BY METER Routine 06/27/2023 4:[address] CHEST PULMONARY EMBOLISM W CONTRAST STAT 06/25/2023 5:56 PM SEASONER HAND from Last 3 Months or Most Recently Relevant to Health Maintenance Results * (ABNORMAL) Glucose by meter (06/27/2023 4:15 AM SEASONER HAND) GLUCOSE BY METER POCT 113(H) 70 - 99 mg/dL 06/27/2023 4:21 AM SEASONER HAND RH LABORATORY POC Blood, Capillary BLOOD SPECIMEN / Unknown 06/27/2023 4:15 AM SEASONER HAND 06/27/2023 4:21 AM SEASONER HAND Lee Gregg MD LAB - [facility] POCT LABORATORY [facility] Acute Care Lab [address] Lab (1st floor, no room number) [place] [address], [facility] [phone] * CT Chest Pulmonary Embolism w Contrast (06/25/2023 5:56 PM SEASONER HAND) Anatomical Region Laterality Modality Chest, SUBRAD CT BODY, UMP CT CHEST Computed Tomography 06/25/2023 5:56 PM SEASONER HAND Impressions 06/25/2023 6:31 PM SEASONER HAND IMPRESSION: 1. ??No evidence for pulmonary emboli. [...] function tests recommended. Narrative 06/25/2023 6:31 PM SEASONER HAND EXAM: CT CHEST PULMONARY EMBOLISM W CONTRAST LOCATION: [facility] DATE: 06/25/2023 INDICATION: hypoxia, hypotension [...] CT CHEST PULMONARY EMBOLISM W CONTRAST LOCATION: [facility] DATE: 06/25/2023 INDICATION: hypoxia, hypotension [...] Advance Directives For more information, please contact: [phone] * Full Code (Latest Code Status on [...] cke nt/ legal decision maker Care Teams Picking Tech Relationship Specialty Start Date End Date [facility] [id number] [place] [address] PCP - General 05/22/23
--- OUTSIDE RECORDS SUMMARY | 2023-12-31 11:32 | XMS_ITS | Encounter Summary ---
Author Organization [facility] Address [address] [address] Care Team Providers Care Cook Short Order Name Role Phone Asif Genao MD Primary Care Provider Encounter Details Date Type Department Care Team (Latest Contact Info) Description 11/24/1995 Orders Only Kendell Rahman [facility] [address] [facility] [address] Social History Tobacco Use Types [...] on filedocumented in this encounter Care Teams Cook Short Order Relationship Specialty [place] [address] [place] [address] PCP - General Family Practice 08/05/23 documented as of this encounter
--- OUTSIDE RECORDS SUMMARY | 2023-12-31 11:32 | XMS_ITS | Encounter Summary ---
Author Organization [facility] Address [address] [address] Care Team Providers Care Player Development Manager Name Role Phone Asif Genao MD Primary Care Provider Encounter Details Date Type Department Care Team (Latest Contact Info) Description 01/15/1996 [place] [address] [place] [address] Social History Tobacco Use Types Packs/Day Years Used Date Smoking Tobacco: Never Assessed Sex and Gender Information Value Date Recorded Sex Assigned at Not on file Gender Identity Not on file Sexual Orientation Not on file documented as of this encounter Plan of Treatment Not on file documented as of this encounter Visit Diagnoses Not on filedocumented in this encounter Care Teams Player Development Manager Relationship Specialty [place] [address] [place] [address] PCP - General Family Practice 08/05/23 documented as of this encounter
--- OUTSIDE RECORDS SUMMARY | 2023-12-31 11:32 | XMS_ITS | Encounter Summary ---
Author Organization [facility] Address [address] [address] Care Team Providers Care Product Management Intern Name Role Phone Asif Genao MD Primary [...] on filedocumented in this encounter Care Teams Product Management Intern Relationship Specialty [place] [address] [place] [address] PCP - General Family Practice 08/05/23 documented as of this encounter
--- OUTSIDE RECORDS SUMMARY | 2023-12-31 11:32 | XMS_ITS | Clinical Summary ---
Author Organization [facility] Address [address] [place] [address] Care Team Providers Care Chemical Process Project Engineer Name Role Phone Asif Genao MD Primary Care Provider [phone] Source Comments You are receiving this document as you are listed as the primary care provider,follow-up provider, or the patient has been referred to you for consultation.This is in compliance with the Medicare and[facility] Hospital[facility] EHR Incentive Program,which states Providers who transition their patient to another setting of careor provider of care or refers their patient to another provider of care shouldprovide summary care record for each transition of care or referral. Codesion Allergies Active Allergy Reactions Criticality Noted Date [...] Polysubstance abuse 12/15/2016 Overview: Received note from [facility]. Patient seen on 12/11/16 for drug use. Relapsed with methamphetamine and alcohol. Outpatient chemical dependency treatment recommended. Patient has stopped taking medications from mental health. Post traumatic stress disorder 02/28/2016 Hiatal hernia 09/29/2014 Tobacco use disorder 05/01/2014 Idiopathic thrombocytopenic purpura 12/07/2013 Graves disease 12/07/2013 Back pain 12/07/2013 Von Willebrand's disease 06/26/2013 Overview: Overview: She was given the diagnosis of vWD in [place]. However, testing here in 04/2008 and 07/2013 was normal, making vWD unlikely. 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 Buenrostro Moderate major depression 06/26/2013 Agoraphobia with panic disorder 04/17/2008 10/05/2018 Overview: Agoraphobia with panic disorder (ACG) Encounters Date Type Department Care Team Description 11/24/2023 Nurse Triage Careline [address] [place] [address] Unknown, Physician DEPRESSION; NEUROSIS, ANXIETY from Last 3 Months Immunizations Name Administration Dates Next Due HepB Adult (Heplisav-B, 19+ yrs, 2 dose series) 10/18/2022 Influenza IIV4 (Quadrivalent) 0.5mL (45752) 04/12 TB Skin Test (PPD) 10/11/2019,11/06/2016, 016 [...] this topic Medical Devices Implanted Type Area Hearing Consultant Device Identifier Shelf Expiration Date Model / Serial / Lot Plt Dvr Anatomic Shtrt - [id number] Implanted:Qty: 1 on 01/05/2019 by Magy Stephen MD at [facility] DEVICE Right: [employer] - Trauma [id number] / / Scr Dilan 3.5x12 [id number] - [id number] Implanted:Qty: 2 on 01/05/2019 by Magy Stephen MD at [facility] DEVICE Right: [employer] - Trauma [id number] / / Peg Smooth 2.0x16 - [id number] Implanted:Qty: 3 on 01/05/2019 by Magy Stephen MD at [facility] DEVICE Right: [employer] - Trauma [id number] / / Peg Smooth 2.0x18 - [id number] Implanted:Qty: 3 on 01/05/2019 by Magy Stephen MD at [facility] DEVICE Right: [employer] - Trauma [id number] / / Peg Smooth 2.0x20 - [id number] Implanted:Qty: 1 on 01/05/2019 by Magy Stephen MD at [facility] DEVICE Right: [employer] - Trauma [id number] / / Scr Dilan 3.5x10 [id number] - [id number] Implanted:Qty: 1 on 01/05/2019 by Magy Stephen MD at [facility] DEVICE Right: [employer] - Trauma [id number] / / Procedures Procedure Name Priority Date/Time Associated Diagnosis Comments HEPATITIS C ANTIBODY, WITH REFLEX Routine 10/18/2022 12:24 PM TIME BUYER Need for hepatitis C screening test LIPID PANEL & DIRECT LDL (IF NEEDED) Routine 10/18/2022 12:24 PM TIME BUYER Screening for cholesterol level from Last 3 Months or Most Recently Relevant to Health Maintenance Results * (ABNORMAL) Lipid Panel and Direct LDL(If Needed) (10/18/2022 12:24 PM TIME BUYER) Cholesterol 164 0 - 199 mg/dL 10/18/2022 2:03 PM [facility] Triglyceride 147 <=149 mg/dL 10/18/2022 2:03 PM [facility] HDL Cholesterol 37(L) >=40 mg/dL 10/18/2022 2:03 PM [facility] LDL, Calculated 98 <130 mg/dL 10/18/2022 2:03 PM [facility] Non HDL Chol, Calculated 127 <=159 mg/dL 10/18/2022 2:03 PM [facility] Cholesterol/HDL Ratio 4.4 10/18/2022 2:03 PM [facility] Hours Fasting Unknown 10/18/2022 2:03 PM [facility] Blood Venipuncture / Unknown 10/18/2022 12:24 PM TIME BUYER 10/18/2022 12:25 PM TIME BUYER Biju Mercedes [facility] [address] [place] [address], [facility] [phone] [facility] [address] [place] [address], [facility] [phone] * Hepatitis C Antibody, with Reflex (10/18/2022 12:24 PM TIME BUYER) Hepatitis C Antibody Negative (Non Reactive) Negative (Non Reactive) 10/18/2022 5:11 PM TIME BUYER [facility] Comment:Antibodies to HCV no t detected. Does not exclude the possiblity of exposure to HCV. Blood Venipuncture / Unknown 10/18/2022 12:24 PM TIME BUYER 10/18/2022 12:25 PM TIME BUYER Biju Mercedes [facility] [address] [place] [address], [facility] from Last 3 Months or Most Recently Relevant to Health Maintenance Advance Directives * Full Code (Latest Code Status on File) Date Activated Date Inactivated Comments 05/22/2023 11:05 PM 05/23/2023 10:34 PM * Full Code Date Activated Date Inactivated Comments 01/05/2019 1:21 PM 01/05/2019 6:45 PM Care Teams Chemical Process Project Engineer Relationship Specialty [place] [address] [place] [address] PCP - General Family Practice 08/05/23
--- OUTSIDE RECORDS SUMMARY | 2023-12-31 11:32 | XMS_ITS | Encounter Summary ---
Author Organization [facility] Address [address] [place] [address] Care Team Providers Care Center Consultant Name Role Phone Asif Genao MD Primary Care Provider [phone] Encounter Details Date Type Department Care Team (Latest Contact Info) Description 01/25/1997 Orders Only Dasia Mendez, RADIATOR TESTER, PROCESSING TECH [address] [place] [address] Social History Tobacco Use Types Packs/Day Years Used Date Smoking Tobacco: Never Assessed Sex and Gender Information Value Date Recorded Sex Assigned at Not on file Gender Identity Not on file Sexual Orientation Not on file documented as of this encounter Plan of Treatment Not on file documented as of this encounter Visit Diagnoses Not on filedocumented in this encounter Care Teams Center Consultant Relationship Specialty [place] [address] [place] [address] PCP - General Family Practice 08/05/23 documented as of this encounter
--- OUTSIDE RECORDS SUMMARY | 2023-12-31 11:32 | XMS_ITS | Encounter Summary ---
Author Organization [email or web address] Address [address] [address] Care Team Providers Care Learning And Development Intern Name Role Phone Asif Genao MD Primary Care Provider [phone] Encounter Details Date Type Department Care Team (Latest Contact Info) Description 05/10/1996 Orders Only Kendell Rahman [facility] [address] [facility] [address] Social History Tobacco Use Types [...] on filedocumented in this encounter Care Teams Learning And Development Intern Relationship Specialty [place] [address] [place] [address] PCP - General Family Practice 08/05/23 documented as of this encounter
--- OUTSIDE RECORDS SUMMARY | 2023-12-31 11:32 | XMS_ITS | Encounter Summary ---
Author Organization [facility] Address [address] [address] Care Team Providers Care Lifestyle Director Name Role Phone Asif Genao MD Primary Care Provider [phone] Encounter Details Date Type Department Care Team [...] on filedocumented in this encounter Care Teams Lifestyle Director Relationship Specialty [place] [address] [place] [address] PCP - General Family Practice 08/05/23 documented as of this encounter
--- OUTSIDE RECORDS SUMMARY | 2023-12-31 11:32 | XMS_ITS | Encounter Summary ---
Author Organization [facility] Address [address], [place] [address] Care Team Providers Care Twist Packer Name Role Phone Asif Genao MD Primary Care Provider Reason for Visit * Reason Comments DEPRESSION NEUROSIS, ANXIETY Encounter Details Date Type Department Care Team (Late st Contact Info) Description 11/24/2023 Nurse Triage Careline [address] [place], [place] [address] Unknown, Physician [address] [place], [place] [address] DEPRESSION; NEUROSIS, ANXIETY Social History Tobacco Use [...] a transfer. for Adult Mental Health #: [phone] (answered 02/03) Reviewed with patient pertinent medical history (as it related to the call): Yes Reviewed with patient pertinent medications (as they relate to call): Yes Reviewed with patient pertinent allergies (as they relate to call): Yes Reason for Disposition [1] Depression AND [2] unable to do any of normal activities (e.g., self care, school, work; in comparison to baseline). Protocols used: [id number] Plan: Go to the ED now. Transferred [...] on filedocumented in this encounter Care Teams Twist Packer Relationship Specialty [place] [address] [place] [address] PCP - General Family Practice 08/05/23 documented as of this encounter
--- OUTSIDE RECORDS SUMMARY | 2023-12-31 11:32 | XMS_ITS | Encounter Summary ---
Author Organization [facility] Address [address] [facility] [place] [address] Care Team Providers Care Spring Fitter Name Role Phone Asif Genao MD Primary Care Provider [phone] Encounter Details Date Type Department Care Team (Latest Contact Info) Description 06/14/1997 Orders Only Brian Augustin MD [address] [place] [address] Social History Tobacco Use Types Packs/Day Years Used Date Smoking Tobacco: Never Assessed Sex and Gender Information Value Date Recorded Sex Assigned at Not on file Gender Identity Not on file Sexual Orientation Not on file documented as of this encounter Plan of Treatment Not on file documented as of this encounter Visit Diagnoses Not on filedocumented in this encounter Care Teams Spring Fitter Relationship Specialty [place] [address] [place] [address] PCP - General Family Practice 08/05/23 documented as of this encounter
--- OUTSIDE RECORDS SUMMARY | 2023-12-31 11:32 | XMS_ITS | Encounter Summary ---
Author Organization [facility] Address [address] [facility] [place] [address] Care Team Providers Care Account Receivable Associate Name Role Phone Asif Genao MD Primary Care Provider [phone] Encounter Details Date Type Department Care Team (Latest Contact Info) Description 07/14/1996 Orders Only Brian Augustin MD [address] [place] [address] Social History Tobacco Use Types Packs/Day Years Used Date Smoking Tobacco: Never Assessed Sex and Gender Information Value Date Recorded Sex Assigned at Not on file Gender Identity Not on file Sexual Orientation Not on file documented as of this encounter Plan of Treatment Not on file documented as of this encounter Visit Diagnoses Not on filedocumented in this encounter Care Teams Account Receivable Associate Relationship Specialty [place] [address] [place] [address] PCP - General Family Practice 08/05/23 documented as of this encounter
--- OUTSIDE RECORDS SUMMARY | 2023-12-31 11:32 | XMS_ITS | Encounter Summary ---
Author Organization [facility] Address [address], [place] [address] Care Team Providers Care Derrick Boat Lever Operator Name Role Phone Asif Genao MD [...] on filedocumented in this encounter Care Teams Derrick Boat Lever Operator Relationship Specialty [place] [address] [place] [address] PCP - General Family Practice 08/05/23 documented as of this encounter
--- OUTSIDE RECORDS SUMMARY | 2023-12-31 11:32 | XMS_ITS | Encounter Summary ---
Author Organization [facility] Address [address], [place] [address] Care Team Providers Care Gui Developer Name Role Phone Asif Genao MD [...] on filedocumented in this encounter Care Teams Gui Developer Relationship Specialty [place] [address] [place] [address] PCP - General Family Practice 08/05/23 documented as of this encounter
--- OUTSIDE RECORDS SUMMARY | 2023-12-31 11:32 | XMS_ITS | Encounter Summary ---
Author Organization [facility] Address [address] [place] [address] Care Team Providers Care Apron Trimmer Name Role Phone Asif Genao MD Primary Care Provider Encounter Details Date Type Department Care Team (Latest Contact Info) Description 06/13/1996 Orders Only Randell Gasca MD [facility] [address] [place] [address] Social History Tobacco Use Types [...] on filedocumented in this encounter Care Teams Apron Trimmer Relationship Specialty [place] [address] [place] [address] PCP - General Family Practice 08/05/23 documented as of this encounter
--- OUTSIDE RECORDS SUMMARY | 2023-12-31 11:32 | XMS_ITS | Encounter Summary ---
[facility] Address [address] [place] [address] Care Team Providers Care Layout Man Name Role Phone Asif Genao MD Primary Care Provider [phone] Encounter Details Date Type Department Care Team (Latest Contact Info) Description 08/21/1995 Orders Only Randell Gasca MD [facility] [address] [place] [address] Social History Tobacco Use Types [...] on filedocumented in this encounter Care Teams Layout Man Relationship Specialty [place] [id number] [place] [address] PCP - General Family Practice 08/05/23 documented as of this encounter
== END 2023-12-28 14:59 | disposition home or self-care (01) ==
LOC: AMB 12-31 11:29
PROVIDERS: Visit Provider Family Medicine
DX: S29.9XXA Unspecified injury of thorax, initial encounter (principal); W18.30XA Fall on same level, unspecified, initial encounter; Y92.85 Railroad track as the place of occurrence of the external cause
CPT/HCPCS: A0425; A0427

== ENCOUNTER 2023-12-28 15:26 | Observation (INO) | payer MEDICAID, SELFPAY ==
[2023-12-28] VITALS (15 sets, daily range): BP systolic 88–128; BP diastolic 54–93; PULSE 55–96; RESP 14–18; TEMP 36.3–36.8; O2SAT 93–98; BMI 20.6; BMI 19.8
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
[2023-12-28 16:40] LABS: Appearance Urine Clear (Clear); Bilirubin Urine Negative (Negative); Blood Urine Negative (Negative); Color Urine Yellow (Yellow); Glucose Urine Negative (Negative); Ketones Urine Negative (Negative); Leukocyte Esterase Urine Negative (Negative); Nitrite Urine Negative (Negative); Protein Urine Negative (Negative); Urobilinogen Urine 0.2 (0.2-1.0); pH Urine 5.5 (5.0-8.5)
[2023-12-28 16:51] LABS: Amphetamine Screen Urine POSITIVE (Negative); Barbiturate Screen Urine Negative (Negative); Benzodiazepines Screen Urine POSITIVE (Negative); Cannabinoid Screen Urine Negative (Negative); Cocaine Screen Urine Negative (Negative); Methadone Screen Urine Negative (Negative); Methamphetamines Screen Urine POSITIVE (Negative); Opiate Screen Urine Negative (Negative); Oxycodone Screen Urine Negative (Negative); Phencyclidine Screen Urine Negative (Negative); Tricyclic Antidepressant Urine Negative (Negative)
--- NOTE | 2023-12-28 17:00 | CT_ITS ---
Patient: ZAIN BURGER Facility:?[facility] Patient ID:?[id number] Site Patient ID:?[id number]. Site :?1970 Study:?CT-Chest/Abd/Pelvis Cervical W/ 58CC [id number]/20/2024 5:37:01 PM Ordering Physician:?Xander Jeter Final Report: INDICATION: Fall. Right chest pain, shortness of breath. Right flank pain. TECHNIQUE: CT chest, abdomen, and pelvis acquired with 58 mL Isovue 370 contrast. COMPARISON: None. FINDINGS: CHEST: Lungs and pleura: No evidence of pulmonary contusion, laceration, or pneumothorax. Few scattered punctate pulmonary nodules, for example a 0.3 cm nodule in the left upper lobe (series 5, image 26). Heart and vessels: No cardiomegaly, no pericardial effusion. Thyroid and lower neck: No suspicious thyroid nodule. Mediastinum/arik: No lymphadenopathy. Chest wall: No axillary lymphadenopathy. Bilateral breast implants are noted. ABDOMEN/PELVIS: Liver: No suspicious focal hepatic lesion. Gallbladder and bile ducts: Unremarkable. Pancreas: Unremarkable. Spleen: Unremarkable. Adrenal glands: Unremarkable. Kidneys: Kidneys enhance symmetrically, without hydronephrosis. 1.5 cm cyst in the upper pole of the right kidney. Additional too small to characterize hypodense bilateral renal lesions are noted. Retroperitoneum: No lymphadenopathy. Bowel and mesentery: Bowel is not obstructed. No significant ascites, no pneumoperitoneum. Normal appendix. No large mesenteric hematoma identified. Bladder: Unremarkable for degree of distention. Reproductive organs: Unremarkable. Pelvic lymph nodes: No lymphadenopathy. Vessels: Few scattered atherosclerotic calcifications. Abdominal wall: No acute abdominal wall abnormality. Bones: Subtle minimally displaced right posterior 12th rib fracture. IMPRESSION: 1. Subtle minimally displaced right posterior 12th rib fracture. 2. No evidence of acute solid organ injury in the chest, abdomen, or pelvis. 3. Few scattered punctate pulmonary nodules measuring up to 0.3 cm in the left upper lobe. Consider optional follow up CT chest in 12 months, per Fleischner guidelines. Please note that all CT scans at this facility use dose modulation, iterative reconstruction, and/or weight-based dosing when appropriate to reduce radiation dose to as low as reasonably achievable. Dictated by Macy Jennings MD @ 12/28/2023 6:21:02 PM Signed by:Cesario Jennings MD @12/28/2023 6:21:02 PM (Electronic Signature)
--- NOTE | 2023-12-28 17:01 | CT_ITS ---
Patient: ZAIN BURGER Facility:?[facility] Patient ID:?[id number] Site Patient ID:?[id number]. Site :?1970 Study:?CT-Head w/o-12/28/2023 5:37:11 PM Ordering Physician:?Xander Jeter Final Report: INDICATION: Fall, altered mental status TECHNIQUE: Noncontrast axial CT of the head. Coronal and sagittal reformats. Bone and soft tissue algorithms. COMPARISON: CT head report 06/13/2018 FINDINGS: The ventricles and cortical sulci appear age-appropriate. No midline shift or mass effect. No acute intracranial hemorrhage or extra-axial fluid collection. Thin hyperdensity along the anterior interhemispheric falx is attributed to incidental calcification. Preserved alicea-white matter differentiation. Unremarkable white matter attenuation. Minimal calcific plaquing at the carotid siphons. Intact calvarium. Moderate ethmoid air cell mucosal thickening, without sinonasal air-fluid level or mastoid effusion. Unremarkable orbits. IMPRESSION: No skull fracture or acute intracranial hemorrhage identified. Please note that all CT scans at this facility use dose modulation, iterative reconstruction, and/or weight-based dosing when appropriate to reduce radiation dose to as low as reasonably achievable. Dictated by Padmini Tavera MD @ 12/28/2023 6:17:39 PM Signed by:?Padmini Tavera MD @12/28/2023 6:17:39 PM (Electronic Signature)
--- NOTE | 2023-12-28 17:01 | CT_ITS ---
Patient: ZAIN BURGER Facility:?[facility] Patient ID:?[id number] Site Patient ID:?[id number]. Site :?1970 Study:?CT-Spine Cervical w/o-12/28/2023 5:37:07 PM Ordering Physician:?Xander Jeter Final Report: Indication: Fall, altered mental status Technique: Noncontrast axial CT of the cervical spine with coronal and sagittal reformats. Comparison: MRI cervical spine report 05/27/2019, CT cervical spine report 06/13/2018 Findings: There is artifact from patient motion, degrading image quality. There is mild straightening of the normal cervical lordosis. Suspect degenerative grade 1 anterolisthesis at C4-5. No acute fracture identified. Craniocervical articulation appears within normal limits. At C4-5, right asymmetric facet arthropathy and shallow disc bulge. No significant neural foraminal or spinal canal stenosis. No concerning findings identified in the paraspinal soft tissues. No evidence of pneumothorax within the minimally included lung apices. Impression: 1. No evidence of acute fracture or traumatic malalignment in the cervical spine. Please note that all CT scans at this facility use dose modulation, iterative reconstruction, and/or weight-based dosing when appropriate to reduce radiation dose to as low as reasonably achievable. Dictated by Padmini Tavera MD @ 12/28/2023 6:20:55 PM Signed by:?Padmini Tavera MD @12/28/2023 6:20:55 PM (Electronic Signature)
[2023-12-28 17:23] LABS: Lactate* 0.6 mmol/L (0.5-1.9)
[2023-12-28 17:25] LABS: Basophils Absolute Auto 0.05 K/uL (0.00-0.30); Basophils Percent Auto 0.6 % (0.0-3.0); Eosinophils Percent Auto 5.1 % (0.0-7.0); Hematocrit 42.8 % (33.0-51.0); Hemoglobin* 13.5 gm/dL (12.0-16.0); Immature Granulocytes Abs Auto 0.01 K/uL (0.00-0.30); Immature Granulocytes Pct Auto 0.1 %; Lymphocytes Absolute Auto 2.96 K/uL (0.90-2.90); Lymphocytes Percent Auto 37.5 % (20-44); Mean Corpuscular HGB Conc 32 gm/dL (32-36); Mean Corpuscular Hemoglobin 29 pg (26-34); Mean Corpuscular Volume 92 fL (80-100); Monocytes Percent Auto 7.8 % (0.0-11.0); Neutrophils Absolute Auto 3.86 K/uL (1.7-7.0); Neutrophils Percent Auto 48.9 % (42.0-72.0); Platelet Count* 128 K/uL (140-440); RDW Coefficient of Variation % 13.2 % (11.5-15.5); Red Blood Count 4.63 m/uL (4.00-5.20)
[2023-12-28 17:43] LABS: Chloride* 105 mmol/L (96-114); Potassium* 3.4 mmol/L (3.6-5.1); Sodium* 138 mmol/L (135-149)
[2023-12-28 17:45] LABS: Creatinine* 0.7 mg/dL (0.5-1.5); Est. Creatinine Clearance* 78.03; Estimated Glomerular Filt Rate 102 ml/min
[2023-12-28 17:46] LABS: Alanine Aminotransferase* 15 U/L (4-35); Alkaline Phosphatase* 60 U/L (40-150); Anion Gap 8 mEq/L (7-15); Aspartate Amino Transferase* 21 U/L (12-35); Blood Urea Nitrogen* 11 mg/dL (7-30); Calcium* 9.1 mg/dL (8.4-10.6); Carbon Dioxide* 25 mmol/L (20-32); Glucose* 87 mg/dL (60-115); Total Protein* 7.9 g/dL (6.0-8.3)
[2023-12-28 17:49] LABS: Ethanol* < 0.01 % (0.01-0.03)
--- OUTSIDE RECORDS SUMMARY | 2023-12-28 17:51 | XMS_ITS | Encounter Summary ---
Author Name Unknown Organization [facility] Address [address] [place] [address] Care Team Providers Care Psychiatric Social Worker Name Role Phone Asif Genao MD Primary [...] on filedocumented in this encounter Care Teams Psychiatric Social Worker Relationship Specialty [place] [address] [place] [address] PCP - General Family Practice 08/05/23 documented as of this encounter
--- OUTSIDE RECORDS SUMMARY | 2023-12-28 17:51 | XMS_ITS | Encounter Summary ---
Author Name Unknown Organization [facility] Address [address] [place] [address] Care Team Providers Care Youth Specialist Name Role Phone Asif Genao MD Primary Care Provider [phone] Encounter Details Date Type Department Care Team (Latest Contact Info) Description 01/15/1996 [place] [address] [place] [address] Social History Tobacco Use Types Packs/Day Years Used Date Smoking Tobacco: Never Assessed Sex and Gender Information Value Date Recorded Sex Assigned at Not on file Gender Identity Not on file Sexual Orientation Not on file documented as of this encounter Plan of Treatment Not on file documented as of this encounter Visit Diagnoses Not on filedocumented in this encounter Care Teams Youth Specialist Relationship Specialty [place] [address] [place] [address] PCP - General Family Practice 08/05/23 documented as of this encounter
--- OUTSIDE RECORDS SUMMARY | 2023-12-28 17:51 | XMS_ITS | Clinical Summary ---
Author Name Unknown Organization [facility] Address [address] [place] [address] Care Team Providers Care Panel Edge Painter Name Role Phone [facility] Primary Care Provider Allergies Active [...] Active naloxone (NARCAN) 4 MG/0.1ML nasal spray [place] 1 spray (4 mg) into one nostril [...] Drug abuse 12/15/2016 Overview: Received note from [facility]. Patient seen on 12/11/16 for drug use. Relapsed with methamphetamine and alcohol. Outpatient chemical dependency treatment recommended. Patient has stopped taking medications from mental health. Backache 12/07/2013 Anxiety 06/26/2013 Graves' disease 06/26/2013 Idiopathic thrombocytopenic purpura 06/26/2013 Von Willebrand disease 06/26/2013 Overview: Overview: She was given the diagnosis of vWD in [place]. However, testing here in 04/2008 and 07/2013 was normal, making vWD unlikely. She was given the diagnosis of vWD in [place]. However, testing here in 04/2008 and 07/2013 [...] Comments Blood Pressure 136/88 06/27/2023 12:00 PM EDUCATIONAL DIAGNOSTICIAN Pulse 73 06/27/2023 12:00 PM EDUCATIONAL DIAGNOSTICIAN Temperature 36.9 ??C (98.4 ??F) 06/27/2023 12:[address] Respiratory Rate 30 06/27/2023 10:00 AM EDUCATIONAL DIAGNOSTICIAN Oxygen Saturation 88% 06/27/2023 12:00 PM EDUCATIONAL DIAGNOSTICIAN Inhaled Oxygen Concentration - - Weight 59 kg (130 lb) 06/25/2023 9:24 AM EDUCATIONAL DIAGNOSTICIAN Height 162.6 cm (5' 4) 12/09/2022 10:40 [...] this topic Medical Devices Implanted Type Area Vehicle Body Maker Device Identifier Shelf Expiration Date Model / Serial / Lot Trial Lead Kit Implanted:Qty: 1 on 07/15/2019 by Ajith Laura MD at [facility] Right: Back [employer] 05/31/2021 AK-2316-50 E / [id number] / Trial Lead Kit Implanted:Qty: 1 on 07/15/2019 by Ajith Laura MD at [facility] Right: Back [employer] 06/01/2021 AK-2316-50 E / [id number] / Procedures Procedure Name Priority Date/Time Associated Diagnosis Comments GLUCOSE BY METER Routine 06/27/2023 4:[address] CHEST PULMONARY EMBOLISM W CONTRAST STAT 06/25/2023 5:56 PM EDUCATIONAL DIAGNOSTICIAN from Last 3 Months or Most Recently Relevant to Health Maintenance Results * (ABNORMAL) Glucose by meter (06/27/2023 4:15 AM EDUCATIONAL DIAGNOSTICIAN) [facility] GLUCOSE BY METER POCT 113(H) 70 - 99 mg/dL 06/27/2023 4:21 AM EDUCATIONAL DIAGNOSTICIAN LABORATORY POC Blood, Capillary BLOOD SPECIMEN / Unknown 06/27/2023 4:15 AM EDUCATIONAL DIAGNOSTICIAN 06/27/2023 4:21 AM EDUCATIONAL DIAGNOSTICIAN Lee HOWELL POCT RH LABORATORY POC [facility] Acute Care Lab [address] [facility] Lab (1st floor, no room number) [place] [address], [facility] [phone] * CT Chest Pulmonary Embolism w Contrast (06/25/2023 5:56 PM EDUCATIONAL DIAGNOSTICIAN) Anatomical Region Laterality Modality Chest, SUBRAD CT BODY, UMP CT CHEST Computed Tomography 06/25/2023 5:56 PM EDUCATIONAL DIAGNOSTICIAN Impressions 06/25/2023 6:31 PM EDUCATIONAL DIAGNOSTICIAN IMPRESSION: 1. ??No evidence for pulmonary emboli. [...] function tests recommended. Narrative 06/25/2023 6:31 PM EDUCATIONAL DIAGNOSTICIAN EXAM: CT CHEST PULMONARY EMBOLISM W CONTRAST LOCATION: [facility] DATE: 06/25/2023 INDICATION: hypoxia, hypotension COMPARISON: CTA [...] CT CHEST PULMONARY EMBOLISM W CONTRAST LOCATION: [facility] DATE: 06/25/2023 INDICATION: hypoxia, hypotension COMPARISON: CTA [...] renal function tests recommended. Tommy Dueñas MD [facility] [place] ORDERABLES from Last 3 Months or Most Recently Relevant to Health Maintenance Advance Directives For more information, please contact: [phone] * Full Code (Latest Code Status on [...] cke nt/ legal decision maker Care Teams Panel Edge Painter Relationship Specialty Start Date End Date [facility] [id number] [place] [address] PCP - General 05/22/23
--- OUTSIDE RECORDS SUMMARY | 2023-12-28 17:51 | XMS_ITS | Encounter Summary ---
Author Name Unknown Organization [facility] Address [address] [place] [address] Care Team Providers Care Organ Installer Name Role Phone Asif Genao MD Primary Care Provider [phone] Reason for Visit * Reason Comments DEPRESSION NEUROSIS, ANXIETY Encounter Details Date Type Department Care Team (Late st Contact Info) Description 11/24/2023 Nurse Triage Careline [address] [facility] [place], [place] [address] Unknown, Physician [address] [place], [place] [address] DEPRESSION; NEUROSIS, ANXIETY Social History Tobacco Use [...] a transfer. for Adult Mental Health #: [phone] (answered 02/03) Reviewed with patient pertinent medical history (as it related to the call): Yes Reviewed with patient pertinent medications (as they relate to call): Yes Reviewed with patient pertinent allergies (as they relate to call): Yes Reason for Disposition [1] Depression AND [2] unable to do any of normal activities (e.g., self care, school, work; in comparison to baseline). Protocols used: [id number] Plan: Go to the ED now. Transferred [...] on filedocumented in this encounter Care Teams Organ Installer Relationship Specialty [place] [address] [place] [address] PCP - General Family Practice 08/05/23 documented as of this encounter
--- OUTSIDE RECORDS SUMMARY | 2023-12-28 17:51 | XMS_ITS | Encounter Summary ---
Author Name Unknown Organization [facility] Address [address] [place] [address] Care Team Providers Care Fire Extinguisher Repairer Inspector Name Role Phone Asif Genao MD Primary Care Provider Encounter Details Date Type Department Care Team (Latest Contact Info) Description 11/24/1995 Orders Only Kendell Rahman [facility] [place] [address] [facility] [address] Social History Tobacco Use Types Packs/Day Years Used Date Smoking Tobacco: Never Assessed Sex and Gender Information Value Date Recorded Sex Assigned at Not on file Gender Identity Not on file Sexual Orientation Not on file documented as of this encounter Plan of Treatment Not on file documented as of this encounter Visit Diagnoses Not on filedocumented in this encounter Care Teams Fire Extinguisher Repairer Inspector Relationship Specialty [place] [address] [place], [place] [id number] PCP - General Family Practice 08/05/23 documented as of this encounter
--- OUTSIDE RECORDS SUMMARY | 2023-12-28 17:51 | XMS_ITS | Encounter Summary ---
Author Name Unknown Organization [facility] Address [facility] [place] [address] Care Team Providers Care Lime Kiln Tender Name Role Phone Naif Burroughs MD Primary Care Provider Unavailable Clinic, [facility] Primary Care Prov ider Clinic, [facility] Primary Care Provider Encounter Details Date Type Department Care Team ([facility] st Contact Info) Description 12/01/2022 Telephone [facility] Behavioral Health Intake [address] [place] [address] Generic, Behavioral Intake, Social History [...] individual therapy(resources provided and referral made to [facility] Clinics). ?? Discuss long-term use of RX Xanax and your medication regimen with your medical providers. ?? Should you struggle with any abuse of alcohol or drugs in the future, consider an updated assessment and a higher level of care. A referral has been to [facility] for individual therapy. If you do not hear from Intake, you can call them at [phone] to be placed on the waiting list. Other resources have also been sent to you via secure e-mail. You can also check with [facility] as to any other in-network providers. Thanks, and wishing you the very best! SKYLER Hackett Licensed Alcohol and Drug Counselor Triage and Transition: Assessment Center [facility] Services [facility] [address] [email or web address] Office: [phone] Gender Pronouns: she/her * Telephone Encounter - Zo Velez LADC - 12/09/2022 4:12 PM CDT Per pt request resources for therapist were securely e-mailed to her along with a reminder to reachout to for in-network services. A 9035 order for therapy with a [facility] therapist was also placed inhte event [...] chart) Caller name: Carla Caller phone #: [phone] If in person, please state reason why: [...] Out COVID-19 06/25/2023 06/25/2023 06/25/2023 9:14 PM DIRECTOR INSURANCE documented as of this encounter Care Teams Lime Kiln Tender Relationship Specialty Start Date End Date Naif Burroughs MD PCP - General Family Practice 07/12/1901/07 [facility], [facility] [address] [facility] [place] [address] PCP - General 01/08/23 05/21/23 [facility] [id number] [place] [address] PCP - General 05/22/23 documented as of this encounter
--- OUTSIDE RECORDS SUMMARY | 2023-12-28 17:51 | XMS_ITS | Encounter Summary ---
Author Name Unknown Organization [facility] Address [address] [place] [address] Care Team Providers Care Food Vendor Name Role Phone Asif Genao MD Primary Care Provider [phone] Encounter Details Date Type Department Care Team (Latest Contact Info) Description 06/13/1996 Orders Only Randell Gasca MD [facility] [address] [place] [address] Social History Tobacco Use Types [...] on filedocumented in this encounter Care Teams Food Vendor Relationship Specialty [place] [address] [place] [address] PCP - General Family Practice 08/05/23 documented as of this encounter
--- OUTSIDE RECORDS SUMMARY | 2023-12-28 17:51 | XMS_ITS | Encounter Summary ---
Author Name Unknown Organization [facility] Address [address] [place] [address] Care Team Providers Care Contracts Manager Name Role Phone Asif Genao MD Primary Care Provider Encounter Details Date Type Department Care Team (Latest Contact Info) Description 08/21/1995 Orders Only Randell Gasca MD [facility] [address] [place] [address] Social History Tobacco Use Types [...] on filedocumented in this encounter Care Teams Contracts Manager Relationship Specialty [place] [address] [place] [address] PCP - General Family Practice 08/05/23 documented as of this encounter
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
--- OUTSIDE RECORDS SUMMARY | 2023-12-28 17:51 | XMS_ITS | Referral Summary ---
Author Name Unknown Organization [facility] Address [address] [place] [address] Care Team Providers Care Rig Mechanic Name Role Phone [facility] Primary Care Provider Allergies Active Allergy [...] Active naloxone (NARCAN) 4 MG/0.1ML nasal spray [place] 1 spray (4 mg) into one nostril [...] Drug abuse 12/15/2016 Overview: Received note from [facility]. Patient seen on 12/11/16 for drug use. Relapsed with methamphetamine and alcohol. Outpatient chemical dependency treatment recommended. Patient has stopped taking medications from mental health. Backache 12/07/2013 Anxiety 06/26/2013 Graves' disease 06/26/2013 Idiopathic thrombocytopenic purpura 06/26/2013 Von Willebrand disease 06/26/2013 Overview: Overview: She was given the diagnosis of vWD in [place]. However, testing here in 04/2008 and 07/2013 was normal, making vWD unlikely. She was given the diagnosis of vWD in [place]. However, testing here in 04/2008 and 07/2013 [...] Comments Blood Pressure 136/88 06/27/2023 12:00 PM PLAYGROUND MONITOR Pulse 73 06/27/2023 12:00 PM PLAYGROUND MONITOR Temperature 36.9 ??C (98.4 ??F) 06/27/2023 12:[address] Respiratory Rate 30 06/27/2023 10:00 AM PLAYGROUND MONITOR Oxygen Saturation 88% 06/27/2023 12:00 PM PLAYGROUND MONITOR Inhaled Oxygen Concentration - - Weight 59 kg (130 lb) 06/25/2023 9:24 AM PLAYGROUND MONITOR Height 162.6 cm (5' 4) 12/09/2022 10:40 AM CDT Body Mass Index 22.31 12/09/2022 10:40 AM CDT Plan of Treatment Not on file Medical Devices Implanted Type Area Harness Cutter Device Identifier Shelf Expiration Date Model / Serial / Lot Trial Lead Kit Implanted:Qty: 1 on 07/15/2019 by Ajith Laura MD at [facility] Right: Back [employer] 05/31/2021 AZ-2316-50 E / [id number] / Trial Lead Kit Implanted:Qty: 1 on 07/15/2019 by Ajith Laura MD at [facility] Right: Back [employer] 06/01/2021 AZ-2316-50 E / [id number] / Procedures Procedure Name Priority Date/Time Associated Diagnosis Comments GLUCOSE BY METER Routine 06/27/2023 4:[address] CHEST PULMONARY EMBOLISM W CONTRAST STAT 06/25/2023 5:56 PM PLAYGROUND MONITOR from Last 3 Months or Most Recently Relevant to Health Maintenance Results * (ABNORMAL) Glucose by meter (06/27/2023 4:15 AM PLAYGROUND MONITOR) GLUCOSE BY METER POCT 113(H) 70 - 99 mg/dL 06/27/2023 4:21 AM PLAYGROUND MONITOR [facility] LABORATORY POC Blood, Capillary BLOOD SPECIMEN / Unknown 06/27/2023 4:15 AM PLAYGROUND MONITOR 06/27/2023 4:21 AM PLAYGROUND MONITOR Lee [facility] Acute Care Lab [address] Lab (1st floor, no room number) [place] [address], [facility] [phone] * CT Chest Pulmonary Embolism w Contrast (06/25/2023 5:56 PM PLAYGROUND MONITOR) Anatomical Region Laterality Modality Chest, SUBRAD CT BODY, UMP CT CHEST Computed Tomography 06/25/2023 5:56 PM PLAYGROUND MONITOR Impressions 06/25/2023 6:31 PM PLAYGROUND MONITOR IMPRESSION: 1. ??No evidence for pulmonary emboli. [...] function tests recommended. Narrative 06/25/2023 6:31 PM PLAYGROUND MONITOR EXAM: CT CHEST PULMONARY EMBOLISM W CONTRAST LOCATION: [facility] DATE: 06/25/2023 INDICATION: hypoxia, hypotension [...] CT CHEST PULMONARY EMBOLISM W CONTRAST LOCATION: [facility] DATE: 06/25/2023 INDICATION: hypoxia, hypotension [...] Advance Directives For more information, please contact: [phone] * Full Code (Latest Code Status on [...] soledad nt/ legal decision maker Care Teams Rig Mechanic Relationship Specialty Start Date End Date [facility], [facility] [id number] [place] [address] PCP - General 05/22/23
--- OUTSIDE RECORDS SUMMARY | 2023-12-28 17:51 | XMS_ITS | Encounter Summary ---
Author Name Unknown Organization [facility] Address [address] [place] [address] Care Team Providers Care Electrical Solderer Name Role Phone Asif Genao MD Primary Care Provider Encounter Details Date Type Department Care Team (Latest Contact Info) Description 05/10/1996 Orders Only Kendell Rahman [facility] [address] [facility] [address] Social History Tobacco Use Types Packs/Day Years Used Date Smoking Tobacco: Never Assessed Sex and Gender Information Value Date Recorded Sex Assigned at Not on file Gender Identity Not on file Sexual Orientation Not on file documented as of this encounter Plan of Treatment Not on file documented as of this encounter Visit Diagnoses Not on filedocumented in this encounter Care Teams Electrical Solderer Relationship Specialty [place] [address] [place], [place] [id number] PCP - General Family Practice 08/05/23 documented as of this encounter
--- OUTSIDE RECORDS SUMMARY | 2023-12-28 17:51 | XMS_ITS | Encounter Summary ---
Author Name Unknown Organization [facility] Address [address] [place] [address] Care Team Providers Care Manager Grocery Name Role Phone Asif Genao MD Primary [...] on filedocumented in this encounter Care Teams Manager Grocery Relationship Specialty [place] [address] [place] [address] PCP - General Family Practice 08/05/23 documented as of this encounter
--- OUTSIDE RECORDS SUMMARY | 2023-12-28 17:51 | XMS_ITS | Encounter Summary ---
Author Name Unknown Organization [facility] Address [address] [place] [address] Care Team Providers Care Shirt Line Operator Name Role Phone Asif Genao MD Primary Care Provider [phone] Encounter Details Date Type Department Care Team [...] on filedocumented in this encounter Care Teams Shirt Line Operator Relationship Specialty [place] [address] [place] [address] PCP - General Family Practice 08/05/23 documented as of this encounter
--- OUTSIDE RECORDS SUMMARY | 2023-12-28 17:51 | XMS_ITS | Encounter Summary ---
Author Name Unknown Organization [facility] Address [address] [place] [address] Care Team Providers Care Insulation Professional Name Role Phone Asif Genao MD Primary Care Provider [phone] Encounter Details Date Type Department Care Team [...] on filedocumented in this encounter Care Teams Insulation Professional Relationship Specialty [place] [address] [place] [address] PCP - General Family Practice 08/05/23 documented as of this encounter
--- OUTSIDE RECORDS SUMMARY | 2023-12-28 17:51 | XMS_ITS | Encounter Summary ---
Author Name Unknown Organization [facility] Address [address] [place] [address] Care Team Providers Care Shuttle Spotter Name Role Phone Asif Genao MD Primary Care Provider [phone] Encounter Details Date Type Department Care Team (Latest Contact Info) Description 07/14/1996 Orders Only Brian Augustin MD [address] [place] [address] Social History Tobacco Use Types Packs/Day Years Used Date Smoking Tobacco: Never Assessed Sex and Gender Information Value Date Recorded Sex Assigned at Not on file Gender Identity Not on file Sexual Orientation Not on file documented as of this encounter Plan of Treatment Not on file documented as of this encounter Visit Diagnoses Not on filedocumented in this encounter Care Teams Shuttle Spotter Relationship Specialty [place] [address] [place] [address] PCP - General Family Practice 08/05/23 documented as of this encounter
--- OUTSIDE RECORDS SUMMARY | 2023-12-28 17:51 | XMS_ITS | Clinical Summary ---
Author Name Unknown Organization [facility] Address [address] [place] [address] Care Team Providers Care Alteration Specialist Name Role Phone Asif Genao MD Primary Care Provider Source Comments You are receiving this document as you are listed as the primary care provider,follow-up provider, or the patient has been referred to you for consultation.This is in compliance with the Medicare and[facility] EHR Incentive Program,which states Providers who transition their patient to another setting of careor provider of care or refers their patient to another provider of care shouldprovide summary care record for each transition of care or referral. [facility] Allerg[facility] Active Allergy Reactions Criticality Noted Date [...] Polysubstance abuse 12/15/2016 Overview: Received note from [facility]. Patient seen on 12/11/16 for drug use. Relapsed with methamphetamine and alcohol. Outpatient chemical dependency treatment recommended. Patient has stopped taking medications from mental health. Post traumatic stress disorder 02/28/2016 Hiatal hernia 09/29/2014 Tobacco use disorder 05/01/2014 Idiopathic thrombocytopenic purpura 12/07/2013 Graves disease 12/07/2013 Back pain 12/07/2013 Von Willebrand's disease 06/26/2013 Overview: Overview: She was given the diagnosis of vWD in [place]. However, testing here in 04/2008 and 07/2013 was normal, making vWD unlikely. 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 Buenrostro Moderate major depression 06/26/2013 Agoraphobia with panic disorder 04/17/2008 10/05/2018 Overview: Agoraphobia with panic disorder (ACG) Encounters Date Type Department Care Team Description 11/24/2023 Nurse Triage Careline [address] [place] [address] Unknown, Physician DEPRESSION; NEUROSIS, ANXIETY from Last 3 Months Immunizations Name Administration Dates Next Due HepB Adult (Heplisav-B, 19+ yrs, 2 dose series) 10/18/2022 Influenza IIV4 (Quadrivalent) 0.5mL (69904) 04/12 TB Skin Test (PPD) 10/11/2019,11/06/2016, 016 [...] Mammogram 1968 Pneumococcal (1 - PCV) 1974 DTaP/Tdap/Td (1 - Tdap) 09/06/1997 09/05/1997 Zoster/Shingles (1 of 2) 2018 HepB (2) 11/15/2022 10/18/2022 COVID-19 Vaccine (1 - 2022-2 4 season) 2023 Adult Preventive Visit 10/19/2023 10/18/2022 Influenza (Season Ended) 2024 05/09/2015 Cholesterol 10/19/2027 10/18/2022, 01/25/1997 HIV Screening (Preventive Services) Completed 04/17/2008 Hep C Screening (Preventive Services) Completed 10/18/2022 [...] this topic Medical Devices Implanted Type Area Sock Lining Stitcher Device Identifier Shelf Expiration Date Model / Serial / Lot Plt Dvr Anatomic Shtrt - [id number] Implanted:Qty: 1 on 01/05/2019 by Magy Stephen MD at [facility] DEV[facility] Right: [employer] - Trauma [id number] / / Scr Dilan 3.5x12 [id number] - [id number] Implanted:Qty: 2 on 01/05/2019 by Magy Stephen MD at [facility] Right: [employer] - Trauma [id number] / / Peg Smooth 2.0x16 - [id number] Implanted:Qty: 3 on 01/05/2019 by Magy Stephen MD at [facility] Right: [employer] - Trauma [id number] / / Peg Smooth 2.0x18 - [id number] Implanted:Qty: 3 on 01/05/2019 by Magy Stephen MD at [facility] Right: [employer] - Trauma [id number] / / Peg Smooth 2.0x20 - [id number] Implanted:Qty: 1 on 01/05/2019 by Magy Stephen MD at [facility] Right: [employer] - Trauma [id number] / / Scr Dilan 3.5x10 [id number] - [id number] Implanted:Qty: 1 on 01/05/2019 by Magy Stephen MD at [facility] Right: [employer] - Trauma [id number] / / Procedures Procedure Name Priority Date/Time Associated Diagnosis Comments HEPATITIS C ANTIBODY, WITH REFLEX Routine 10/18/2022 12:24 PM PLANNER SCHEDULER Need for hepatitis C screening test LIPID PANEL & DIRECT LDL (IF NEEDED) Routine 10/18/2022 12:24 PM PLANNER SCHEDULER Screening for cholesterol level from Last 3 Months or Most Recently Relevant to Health Maintenance Results * (ABNORMAL) Lipid Panel and Direct LDL(If Needed) (10/18/2022 12:24 PM PLANNER SCHEDULER) Cholesterol 164 0 - 199 mg/dL 10/18/2022 2:03 PM [facility] Triglyceride 147 <=149 mg/dL 10/18/2022 2:03 PM [facility] HDL Cholesterol 37(L) >=40 mg/dL 10/18/2022 2:03 PM [facility] LDL, Calculated 98 <130 mg/dL 10/18/2022 2:03 PM [facility] Non HDL Chol, Calculated 127 <=159 mg/dL 10/18/2022 2:03 PM [facility] Cholesterol/HDL Ratio 4.4 10/18/2022 2:03 PM [facility] Hours Fasting Unknown 10/18/2022 2:03 PM [facility] Blood Venipuncture / Unknown 10/18/2022 12:24 PM PLANNER SCHEDULER 10/18/2022 12:25 PM PLANNER SCHEDULER [facility] [address] [place] [address], [facility] [phone] [facility] [address] [place] [address], [facility] [phone] * Hepatitis C Antibody, with Reflex (10/18/2022 12:24 PM PLANNER SCHEDULER) Hepatitis C Antibody Negative (Non Reactive) Negative (Non Reactive) 10/18/2022 5:11 PM PLANNER SCHEDULER [facility] Comment:Antibodies to HCV no t detected. Does not exclude the possiblity of exposure to HCV. Blood Venipuncture / Unknown 10/18/2022 12:24 PM PLANNER SCHEDULER 10/18/2022 12:25 PM PLANNER SCHEDULER [facility] [address] [place] [address], [facility] from Last 3 Months or Most Recently Relevant to Health Maintenance Advance Directives * Full Code (Latest Code Status on File) Date Activated Date Inactivated Comments 05/22/2023 11:05 PM 05/23/2023 10:34 PM * Full Code Date Activated Date Inactivated Comments 01/05/2019 1:21 PM 01/05/2019 6:45 PM Care Teams Alteration Specialist Relationship Specialty [place] [address] [place] [address] PCP - General Family Practice 08/05/23
--- OUTSIDE RECORDS SUMMARY | 2023-12-28 17:51 | XMS_ITS | Encounter Summary ---
Author Name Unknown Organization [facility] Address [address] [place] [address] Care Team Providers Care Muffle Worker Name Role Phone Asif Genao MD Primary Care Provider [phone] Encounter Details Date Type Department Care Team (Latest Contact Info) Description 06/14/1997 Orders Only Brian Augustin MD [address] [place] [address] Social History Tobacco Use Types Packs/Day Years Used Date Smoking Tobacco: Never Assessed Sex and Gender Information Value Date Recorded Sex Assigned at Not on file Gender Identity Not on file Sexual Orientation Not on file documented as of this encounter Plan of Treatment Not on file documented as of this encounter Visit Diagnoses Not on filedocumented in this encounter Care Teams Muffle Worker Relationship Specialty [place] [address] [place] [address] PCP - General Family Practice 08/05/23 documented as of this encounter
--- OUTSIDE RECORDS SUMMARY | 2023-12-28 17:51 | XMS_ITS | Encounter Summary ---
Author Name Unknown Organization [facility] Address [address] [place] [address] Care Team Providers Care Child Care Education Coordinator Name Role Phone Asif Genao MD Primary Care Provider [phone] Encounter Details Date Type Department Care Team (Latest Contact Info) Description 01/25/1997 Orders Only Dasia Mendez, BLISTER RUST ERADICATOR, PRINT INSPECTOR [address] [place] [address] Social History Tobacco Use Types Packs/Day Years Used Date Smoking Tobacco: Never Assessed Sex and Gender Information Value Date Recorded Sex Assigned at Not on file Gender Identity Not on file Sexual Orientation Not on file documented as of this encounter Plan of Treatment Not on file documented as of this encounter Visit Diagnoses Not on filedocumented in this encounter Care Teams Child Care Education Coordinator Relationship Specialty [place] [address] [place] [address] PCP - General Family Practice 08/05/23 documented as of this encounter
[2023-12-28 18:20] LABS: Slide Review Reflex No
[2023-12-28] MEDS: KETOROLAC 15 MG/ML inj IVP (18:24)
[2023-12-28] MEDS: ONDANSETRON 2 MG/ML inj 4 MG IVP (18:24)
--- NOTE | 2023-12-28 20:37 | ED.NURSE ---
Call to April Brown. Updated her on pt disposition and plan of care. She will be in touch with our social work tomorrow to assist with discharge planning.
--- NOTE | 2023-12-28 21:14 | PM.IMHP1 ---
Hospitalist- H&P: HPI History of Present Illness Date Seen: 12/29/23 Chief complaint: Fall Narrative: ADMISSION HISTORY AND PHYSICAL - HOSPITALIST Chief Complaint: pain, mental health acute crisis vs drug abuse HPI: 53 year old female with recent homelessness, substance abuse, recent psych hold and with past medical history significant for generalized anxiety, major depressive disorder, PTSD, somatoform disorder, complex regional pain syndrome [place] That was what she told the ED. She tells me she fell thru a barn loft floor and injured her right rib cage. The fall was actually about 36 hours ago. Her history is extremely difficult to ascertain and she does not answer direct questions. She is having stream of consciousness and jumping from subject to subject. She perseverates about past relationships, traumas. ER COURSE: Toradol, Zofran, labs and imaging. CODE STATUS: FULL CODE EMERGENCY CONTACT PLAN: none I've updated the PFSH, medications and allergies in the Expanse tabs. INVESTIGATIONS: LABS/MICRO/ECG/IMAGING CBC reflects a mild thrombocytopenia otherwise normal. Mild hypokalemia at 3.4 noted otherwise normal complete metabolic panel. Next UA normal UDS positive for amphetamines, methamphetamines and benzodiazepine Alcohol level zero CT CAP IMPRESSION: 1. Subtle minimally displaced right posterior 12th rib fracture. 2. No evidence of acute solid organ injury in the chest, abdomen, or pelvis. 3. Few scattered punctate pulmonary nodules measuring up to 0.3 cm in the left upper lobe. Consider optional follow up CT chest in 12 months, per Fleischner guidelines 1. No evidence of acute fracture or traumatic malalignment in the cervical spine. IMPRESSION: No skull fracture or acute intracranial hemorrhage identified. REVIEW OF SYSTEMS: 12-point ROS completed with patient and negative unless otherwise stated in HPI or below. PHYSICAL EXAM: CONSTITUTIONAL: mildly disheveled. Pressured speech. Varying fluctuations of voice, sentence completion. VITAL SIGNS: see record. HEENT: Normocephalic, atraumatic. PERRL, EOMI, conjunctivae pink, no scleral icterus. Ears and nose externally normal. Pharynx normal. NECK: No JVD. No carotid bruit, no thyromegaly, no adenopathy. CHEST: Clear to auscultation bilaterally - tender to palpation along the distal right ribs. HEART: S1 and S2 normal. No harsh murmurs. Edema MUSCULOSKELETAL: No gross joint deformity or swelling. NEURO: Cranial nerves intact. Grossly intact. No asymmetric findings. SKIN: No rashes, petechiae, concerning changes PSYCHIATRIC: Paranoid. Mildly manic. Perseverating. Mildly anxious. ADMIT TO MEDSURG: FLOOR CARE DVT: Ambulation, SCDs GI: PO intake Time spent: Today I spent 75 minutes seeing the patient, discussing the patient with ER staff, reviewing Expanse and EPIC notes/diagnostics, discussing the care plan with our care time that includes social work, PT/OT, pharmacy, RT, senior care and documenting my impressions and plan in the medical record. 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 - Other stimulant use, unspecified with stimulant-induced psychotic disorder, unspecified (ICD-10) Substance abuse ?F19.10 - Other psychoactive substance abuse, uncomplicated (ICD-10) Social History Smoking Status: Current every day smoker What tobacco products do you use: cigarettes Do you use any of these nicotine containing products: None Second hand tobacco smoke exposure: No How often do you have a drink containing alcohol: never AUDIT-C Alcohol total score: 0 Non-prescribed substance use: denies use Meds Home Medications and Allergies Home Medications Medication Instructions Recorded Confirmed Type amitriptyline 25 mg tablet 25 mg PO DAILY 10/17/22 10/17/22 History celecoxib 200 mg capsule 200 mg PO DAILY 10/17/22 10/17/22 History cholecalciferol (vitamin D3) 50 2,000 unit PO DAILY 10/17/22 10/17/22 History mcg (2,000 unit) capsule (Vitamin D3) gabapentin 300 mg capsule 900 mg PO Q12H 10/17/22 10/17/22 History meloxicam 15 mg tablet 15 mg PO DAILY 10/17/22 10/17/22 History oxybutynin chloride 5 mg 5 mg PO DAILY 10/17/22 10/17/22 History tablet,extended release 24 hr progesterone micronized 100 mg 100 mg PO HS 10/17/22 10/17/22 History capsule (Prometrium) topiramate 50 mg capsule,extended 50 mg PO DAILY 10/17/22 10/17/22 History release 24 hr tramadol 50 mg tablet 50 mg PO DAILY 10/17/22 10/17/22 History Allergies Allergy/AdvReac Type Severity Reaction Status Date / Time prednisone Allergy Verified 10/17/22 17:36 Exam Const: Vital Signs, click to edit/add: Vital Signs - 24 hr 12/28/23 15:33 12/28/23 15:34 12/28/23 16:02 Temperature 97.4 F L Pulse Rate 74 74 Pulse Rate [Pulse Oximeter] 75 Respiratory Rate 18 14 16 Blood Pressure 111/77 122/75 Blood Pressure [Ri ght Upper Arm] 111/77 Pulse Oximetry 96 96 96 Oxygen Delivery [facility] Room Air 12/28/23 16:32 12/28/23 18:31 12/28/23 19:01 Temperature Pulse Rate 63 63 58 L Pulse Rate [Pulse Oximeter] Respiratory Rate 18 14 14 Blood Pressure 113/93 H 106/67 104/61 Blood Pressure [Ri ght Upper Arm] Pulse Oximetry 97 93 93 [facility] 19:31 12/28/23 20:01 12/28/23 20:38 Temperature 97.4 F L Pulse Rate 55 L 59 L Pulse Rate [Pulse Oximeter] 75 Respiratory Rate 16 14 14 Blood Pressure 101/75 103/60 Blood Pressure [Ri ght Upper Arm] 111/77 Pulse Oximetry 94 95 Oxygen Delivery [facility] Hospitalist - H&P: Result Labs Labs: Short CBC 12/28/23 Range/Units 17:18 WBC 7.90 (4.50-11.00) K/uL Hgb 13.5 (12.0-16.0) gm/dL Hct 42.8 (33.0-51.0) % Plt Count 128 L (140-440) K/uL BMP 12/28/23 17:18 Sodium 138 Potassium 3.4 L Chloride 105 Carbon Dioxide 25 BUN 11 Creatinine 0.7 Glucose 87 Calcium 9.1 Liver Function 12/28/23 Range/Units 17:18 Total Bilirubin 1.0 (0.1-1.5) mg/dL AST 21 (12-35) U/L ALT 15 (4-35) U/L Alkaline Phosphatase 60 (40-150) U/L Albumin 5.0 (3.3-5.0) g/dL Urine 12/28/23 Range/Units 16:30 Urine Color Yellow (Yellow) Urine Appearance Clear (Clear) Urine pH 5.5 (5.0-8.5) Ur Specific [place] 1.010 (1.000-1.030) Urine Protein Negative (Negative) Urine Glucose (UA) Negative (Negative) Assessment and Plan Assessment and plan (1) Fall: Problem comment: -unclear cause/timing -imaging reassuring other than right distal rib fracture -complex social situation -acetaminophen, ibuprofen, lidoderm patch -PT/OT/Social work Status: Acute (2) Rib fracture: Problem comment: -as above Status: Acute (3) Substance abuse: Problem comment: +stimulants in UDS -supportive care while we sort out what is recreational drug induced verses mental health disorder -DEC assessment Status: Acute (4) Stimulant-induced psychotic disorder: Problem comment: -briefly admitted in [place] for this December 22 and . Status: Acute (5) Agoraphobia with panic disorder: Problem comment: -abstracted from previous record Status: Acute (6) Hyperthyroidism: Problem comment: -abstracted from previous record Status: Acute
[2023-12-28] MEDS: SODIUM CHLORIDE 0.9 % (FLUSH) 10 ML SYRINGE 5 ML IVF (22:01)
[2023-12-28] MEDS: LIDOCAINE 5% PATCH 1 PATCH TRANSDERMA (22:44)
[2023-12-29 07:00] VITALS: BP 100/57; PULSE 57; RESP 16; TEMP 36.6; O2SAT 94
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
[2023-12-29] MEDS: MULTIVITAMIN/MINERALS 1 TABLET 1 TAB PO (09:02)
[2023-12-29] MEDS: FOLIC ACID 1 MG TABLET PO (09:02)
[2023-12-29 10:26] VITALS: PULSE 61
--- NOTE | 2023-12-29 11:57 | PC.SOCIAL ---
Discharge planning: Called and faxed information to [facility] for evaluation for admit. Awaiting decision on admit. [employer] worker to follow up as needed.
--- NOTE | 2023-12-29 13:23 | REH.OT ---
OT/PT orders received to evaluate. Therapies will hold evaluation until pt. is medically appropriate and able to participate.
[2023-12-29] MEDS: ACETAMINOPHEN 325 MG TABLET 650 MG PO ×3 (13:25→21:17)
[2023-12-29] MEDS: GABAPENTIN 300 MG CAPSULE 600 MG PO ×2 (13:26→21:17)
[2023-12-29] MEDS: IBUPROFEN 400 MG TABLET PO (13:27)
[2023-12-29] MEDS: ALPRAZolam 0.25 MG TABLET 1 MG PO (13:28)
[2023-12-29] MEDS: SODIUM CHLORIDE 0.9 % (FLUSH) 10 ML SYRINGE 5 ML IVF ×2 (13:29→21:21)
[2023-12-29 15:00] VITALS: BP 101/64; PULSE 60; PULSE 83; RESP 16; TEMP 36.6; O2SAT 96
--- NOTE | 2023-12-29 16:32 | PM.IMPN1 ---
Progress Note: A&P Assessment and plan (1) Fall: Problem details: -unclear cause/timing -imaging reassuring other than right distal rib fracture -complex social situation -acetaminophen, ibuprofen, lidoderm patch -PT/OT/Social work Status: Acute (2) Rib fracture: Problem details: -as above Status: Acute (3) Substance abuse: Problem details: +stimulants in UDS -supportive care while we sort out what is recreational drug induced verses mental health disorder -consider DEC assessment - patient to anger to cooperate at this time Status: Acute (4) Stimulant-induced psychotic disorder: Problem details: -briefly admitted in [place] for this December 22 and . Status: Acute (5) Agoraphobia with panic disorder: Problem details: -abstracted from previous record Status: Acute (6) Hyperthyroidism: Problem details: -abstracted from previous record Status: Acute Plan 1. Reviewed impression with patient. 2. Were carefully with nursing staff. Recommend interacting with patient with at least 1 other staff present at all times due to patient labile emotions and tendency to be angry. No indication of hurting herself or anyone else at this time. 3. Working with long term care social worker. Consider transfer for detox if bed availability. Time Spent With Patient Total time spent: 40 minutes Subjective Date Seen: 12/29/23 Interval history: Admission history of present illness: ?53 year old female with recent homelessness, substance abuse, recent psych hold and with past medical history significant for generalized anxiety, major depressive disorder, PTSD, somatoform disorder, complex regional pain syndrome [place] That was what she told the ED. She tells me she fell thru a barn loft floor and injured her right rib cage. The fall was actually about 36 hours ago. Her history is extremely difficult to ascertain and she does not answer direct questions. She is having stream of consciousness and jumping from subject to subject. She perseverates about past relationships, traumas. ?ER COURSE: Toradol, Zofran, labs and imaging.? Hospital day 2. Admitted 12/28/2023. Notes persistent chest discomfort. Can take deep breath if does so slowly. Needs to be careful not to move too quickly otherwise the pain in her chest is worse. Denies dyspnea at rest. Patient becomes verbally aggressive, angry, swearing when I ask her about her use of methamphetamine or amphetamine. She claims she has never used any street or recreational drugs in the past. She rarely ever drinks alcoholic beverages. She tells me that when she was at another institution they also asked her about her use of amphetamine and methamphetamine after finding this in her urine. She is angry and upset about this. She states she wants this removed from her medical record. It is difficult to converse with her because she wants to keep talking about her not having home to move into, that she was illegally evicted from her apartment, and how she has a [facility] social science research assistant helping her try to find a place to live. Exam Narrative: Exam Narrative: I examine her in her hospital room. When she is still she appears comfortable in her bed with head of the bed elevated. Any movement and she winces but is able to sit up despite the wincing. Alert and oriented to self, place, time, and is best as I can tell to the situation as well. Labile emotions. For the most part she is angry, upset. Does use vulgar and crude words. She fired 1 of her nurses because her nurse informed the patient that I was a male physician and not a female physician, which apparently angered the patient. Lungs are clear to auscultation. Chest wall excursions are full. Heart tones with regular rhythm. Normal S1-S2. Abdomen with active bowel sounds, soft, nontender. Extremities without edema. Right tympanic membrane is clear. On the left she has wax obstructing visualization. Oropharynx with moist mucous membranes and dentition in fair repair. I do not see any track lines in her antecubital fossa bilaterally. Const: Vital Signs, click to edit/add: Vital Signs - 24 hr 12/28/23 18:31 12/28/23 19:01 12/28/23 19:31 Temperature Pulse Rate 63 58 L 55 L Pulse Rate [Pulse Oximeter] Pulse Rate [orthos tatic lying] Pulse Rate [orthos tatic sitting] Pulse Rate [orthos tatic standing] Respiratory Rate 14 14 16 Blood Pressure 106/67 104/61 101/75 Blood Pressure [Ri ght Arm] Blood Pressure [Ri ght Upper Arm] Blood Pressure [or thostatic lying] Blood Pressure [or thostatic sitting] Blood Pressure [or thostatic standing ] Pulse Oximetry 93 93 94 Oxygen Delivery Me thod 12/28/23 20:01 12/28/23 20:38 12/28/23 20:47 Temperature 97.4 F L Pulse Rate 59 L Pulse Rate [Pulse Oximeter] 75 Pulse Rate [orthos tatic lying] Pulse Rate [orthos tatic sitting] Pulse Rate [orthos tatic standing] Respiratory Rate 14 14 18 Blood Pressure 103/60 Blood Pressure [Ri ght Arm] Blood Pressure [Ri ght Upper Arm] 111/77 Blood Pressure [or thostatic lying] Blood Pressure [or thostatic sitting] Blood Pressure [or thostatic standing ] Pulse Oximetry 95 98 Oxygen Delivery Me thod Room Air 12/28/23 20:53 12/28/23 21:00 12/28/23 21:26 Temperature Pulse Rate 62 Pulse Rate [Pulse Oximeter] 66 Pulse Rate [orthos tatic lying] 55 L Pulse Rate [orthos tatic sitting] 71 Pulse Rate [orthos tatic standing] 96 Respiratory Rate 18 Blood Pressure Blood Pressure [Ri ght Arm] 101/68 Blood Pressure [Ri ght Upper Arm] Blood Pressure [or thostatic lying] 102/63 Blood Pressure [or thostatic sitting] 128/76 Blood Pressure [or thostatic standing ] 110/89 Pulse Oximetry 98 Oxygen Delivery Me thod Room Air 12/28/23 22:58 12/28/23 22:58 12/28/23 23:30 Temperature 97.6 F 98.3 F Pulse Rate Pulse Rate [Pulse Oximeter] 68 63 Pulse Rate [orthos tatic lying] Pulse Rate [orthos tatic sitting] Pulse Rate [orthos tatic standing] Respiratory Rate 18 18 18 Blood Pressure Blood Pressure [Ri ght Arm] 89/56 L 88/54 L Blood Pressure [Ri ght Upper Arm] Blood Pressure [or thostatic lying] Blood Pressure [or thostatic sitting] Blood Pressure [or thostatic standing ] Pulse Oximetry 96 96 Oxygen Delivery Me thod Room Air Room Air Room Air 12/29/23 07:00 12/29/23 10:26 Temperature 97.8 F Pulse Rate 61 Pulse Rate [Pulse Oximeter] 57 L Pulse Rate [orthos tatic lying] Pulse Rate [orthos tatic sitting] Pulse Rate [orthos tatic standing] Respiratory Rate 16 Blood Pressure Blood Pressure [Ri ght Arm] 100/57 L Blood Pressure [Ri ght Upper Arm] Blood Pressure [or thostatic lying] Blood Pressure [or thostatic sitting] Blood Pressure [or thostatic standing ] Pulse Oximetry 94 Oxygen Delivery Me thod Room Air Labs Labs: Laboratory Results - last 24 hr 12/28/23 12/28/23 12/28/23 16:30 17:18 22:12 WBC 7.90 RBC 4.63 Hgb 13.5 Hct 42.8 MCV 92 MCH 29 MCHC 32 RDW Coeff of Vandana 13.2 Plt Count 128 L Neut % (Auto) 48.9 Lymph % (Auto) 37.5 Campbell % (Auto) 7.8 Eos % (Auto) 5.1 Baso % (Auto) 0.6 Neut # (Auto) 3.86 Lymph # (Auto) 2.96 H Campbell # (Auto) 0.60 Eos # (Auto) 0.40 Baso # (Auto) 0.05 Abs Immat Gran (auto) 0.01 Imm/Tot Granulo (auto) 0.1 Sodium 138 Potassium 3.4 L Chloride 105 Carbon Dioxide 25 Anion Gap 8 BUN 11 Creatinine 0.7 Estimated Creat Clear 78.03 Estimated GFR 102 Glucose 87 Lactate 0.6 Calcium 9.1 Total Bilirubin 1.0 AST 21 ALT 15 Alkaline Phosphatase 60 Total Protein 7.9 Albumin 5.0 TSH 0.660 Urine Color Yellow Urine Appearance Clear Urine pH 5.5 Ur Specific Temple 1.010 Urine Protein Negative Urine Glucose (UA) Negative Urine Ketones Negative Urine Blood Negative Urine Nitrite Negative Urine Bilirubin Negative Urine Urobilinogen 0.2 Ur Leukocyte Esterase Negative Urine Opiates Screen Negative Ur Oxycodone Screen Negative Urine Methadone Screen Negative Ur Barbiturates Screen Negative U Tricyclic Antidepress Negative Ur Phencyclidine Scrn Negative Ur Amphetamines Screen POSITIVE A U Methamphetamines Scrn POSITIVE A U Benzodiazepines Scrn POSITIVE A Urine Cocaine Screen Negative U Marijuana (THC) Screen Negative Ur Drug Screen Comment See Note Ethyl Alcohol < 0.01 L Lab Acknowledgement Test Added
[2023-12-29 19:00] VITALS: BP 97/58; PULSE 96; RESP 16; TEMP 36.8; O2SAT 92
--- NOTE | 2023-12-29 19:48 | PC.NURSE ---
Pt found standing in empty shower voiding into the drain. When adjusto writer operator asked pt is she needed assistance, pt stated she couldn't make it to the toilet. Nuclear Equipment Test Engineer assisted pt with BR cares and pt ambulated independently back to her chair.
[2023-12-29] MEDS: LIDOCAINE 5% PATCH 1 PATCH TRANSDERMA (21:17)
[2023-12-29 22:57] VITALS: PULSE 64
[2023-12-29 23:30] VITALS: BP 86/53; PULSE 77; RESP 16; RESP 18; TEMP 36.6; O2SAT 93
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
[2023-12-30 03:00] VITALS: PULSE 64; RESP 18
[2023-12-30 08:00] VITALS: BP 93/61; PULSE 56; RESP 14; O2SAT 93
[2023-12-30 08:30] VITALS: PULSE 53
[2023-12-30] MEDS: ACETAMINOPHEN 325 MG TABLET 650 MG PO (09:24)
[2023-12-30] MEDS: DULOXETINE 30 MG CAPSULE DR 60 MG PO (09:25)
[2023-12-30] MEDS: MULTIVITAMIN/MINERALS 1 TABLET 1 TAB PO (09:25)
[2023-12-30] MEDS: FOLIC ACID 1 MG TABLET PO (09:25)
[2023-12-30] MEDS: THIAMINE 100 MG TABLET PO (09:25)
[2023-12-30] MEDS: SODIUM CHLORIDE 0.9 % (FLUSH) 10 ML SYRINGE 5 ML IVF (09:25)
--- NOTE | 2023-12-30 09:34 | PC.NURSE ---
Pt requested I contact her manager of case management Selina ... I called her and left her a voicemail.
--- NOTE | 2023-12-30 10:33 | PC.SOCIAL ---
Discharge planning: Spoke with [facility] detox who states they refused pt due to thinking they heard in a nurse to nurse report yesterday that pt needed hospital level care due to pain control. survey workers supervisor clarified that pt has been medically cleared. [facility] staff states it has now been too long since pt's last substance use and she is not eligible for detox unless she wants to stay voluntarily. survey workers supervisor to follow up as needed.
--- NOTE | 2023-12-30 11:20 | PM.DS1 ---
DS: Providers Provider Date Seen: 12/30/23 Date of admission: 12/28/23 20:36 Primary care physician: Not a Local Provider Admitting Clinician: Danna Collazo MD Consults: 12/28/23 20:47 Consult to Furniture Builder [CONS] Routine Comment: Reason for Consult:: Social Service Consult Attending Physician on discharge: Yanet Newton MD Date of Discharge: 12/30/23 DS: Diagnosis Discharge Diagnosis (1) Fall: Status: Acute Problem details: - unclear cause/timing - imaging reassuring other than right distal rib fracture - pain controlled with acetaminophen, ibuprofen, lidoderm patch (2) Rib fracture: Status: Acute Problem details: -as above (3) Substance abuse: Status: Acute Problem details: +stimulants in UDS -supportive care while we sort out what is recreational drug induced verses mental health disorder (4) Stimulant-induced psychotic disorder: Status: Acute Problem details: -briefly admitted in [place] for this December 22 and (5) Agoraphobia with panic disorder: Status: Acute Problem details: -abstracted from previous record (6) Hyperthyroidism: Status: Acute Problem details: -abstracted from previous record DS: Summary Hospital Course Hospital Course: Carla is a 53-year-old woman with a history of substance abuse, panic disorder, cluster B personality traits, and a complex social situation who was brought into the hospital by ambulance on 12/28/23. She has suffered a fall sometime prior to admission with a posterior right rib fracture resulting. Pain was controlled with ibuprofen, Tylenol, and Lidoderm patch. Upon admission, patient was occasionally abusive to staff and fired her RN and hospital SW. She was provided with hospital Code of conduct and verbalized understanding, she was then more cooperative with cares. She denied thoughts of self harm. On 12/29, we discussed that she no longer had a medical need for hospitalization, and discharge was performed. Patient has a county health social work professor and has access to local resources for housing. She requested a refill of her chronic Xanax and gabapentin upon discharge; after reviewing [facility], 3 day course provided with close Psych followup recommended. Status at Discharge Overall status at discharge: patient is back to baseline Time Spent with Patient Time attestation: Total time spent providing and/or coordinating discharge services: Time spent: Greater than 30 minutes Specific discharge activities: Coordination with multidisciplinary team Exam Narrative: Exam Narrative: GEN: Laying in bed HEENT: EOMIs bilaterally, no scleral icterus CV: RRR, No concerning murmurs R: LCTA bilaterally without concerning wheezing Ext: wwp, no concerning edema Neuro: Nonfocal Psych: Mildly perseverative on housing, redirectable Const: Vital Signs, click to edit/add: Vital Signs - 24 hr 12/29/23 15:00 12/29/23 15:00 12/29/23 15:00 Temperature 97.9 F Pulse Rate 60 Pulse Rate [Pulse Oximeter] 83 83 Respiratory Rate 16 16 Blood Pressure [Ri ght Arm] 101/64 Pulse Oximetry 96 Oxygen Delivery Me thod Room Air 12/29/23 19:00 12/29/23 22:57 12/29/23 23:30 Temperature 98.2 F Pulse Rate 64 Pulse Rate [Pulse Oximeter] 96 77 Respiratory Rate 16 16 Blood Pressure [Ri ght Arm] 97/58 L Pulse Oximetry 92 Oxygen Delivery Me thod Room Air 12/29/23 23:30 12/30/23 03:00 12/30/23 08:00 Temperature 98 F Pulse Rate Pulse Rate [Pulse Oximeter] 77 64 56 L Respiratory Rate 18 18 14 Blood Pressure [Ri ght Arm] 86/53 L 93/61 Pulse Oximetry 93 93 Oxygen Delivery Me thod Room Air Room Air Room Air 12/30/23 08:30 Temperature Pulse Rate 53 L Pulse Rate [Pulse Oximeter] Respiratory Rate Blood Pressure [Ri ght Arm] Pulse Oximetry Oxygen Delivery Me thod Discharge Plan Discharge Disposition: Home, Self-Care Date of Admission: 12/28/23 20:36 Attending Provider on Discharge: Yanet Newton Primary Care Provider: Provider,Not a Local Condition: Stable Anticipated Discharge Date/Time: 12/30/23 11:16 Discharge Medications: New lidocaine 5 % Adhesive Patch,Medicated 1 patch transdermal Q24H Qty: 15 0RF gabapentin 300 mg capsule 300 mg PO TID PRNQty: 12 0RF acetaminophen 325 mg capsule 650 mg PO QID PRNQty: 60 0RF ibuprofen 400 mg tablet 400 mg PO Q8H PRNQty: 60 0RF alprazolam 0.5 mg tablet 0.5 mg PO TID PRNQty: 9 0RF Discontinued meloxicam 15 mg tablet 15 mg PO DAILY gabapentin 300 mg capsule 600 mg PO Q8H cholecalciferol (vitamin D3) [Vitamin D3] 50 mcg (2,000 unit) capsule 2,000 unit PO DAILY alprazolam 1 mg tablet 1 mg PO TID PRN duloxetine 60 mg capsule,delayed release(DR/EC) 60 mg PO DAILY cyclobenzaprine 10 mg tablet 10 mg PO TID PRN Discharge Orders: Discharge Order (Routine); Ordered 12/30/23 Ordered By: Yanet Newton Patient Education: Acetaminophen (By mouth), Ibuprofen (By mouth), Alprazolam (By mouth), Gabapentin (By mouth), Lidocaine Patch (On the skin), Fall Prevention (DC) Additional Instructions: Medically, you are stable. For pain, prescriptions sent to [facility] for Ibuprofen, Tylenol, and Lidocaine patch. I have sent a 3 day course of Alprazolam and Gabapentin to [facility] - you will have to see Dr. Oreilly for any further refills. Activity Level: Activity as Tolerated Follow Up Appointments: Provider,Not a Local [Primary Care Provider] - Forms: [employer] Info Instructions
--- NOTE | 2023-12-30 13:38 | PC.NURSE ---
Patient was cursing and using aggressive and inappropriate language with staff. She fired a nurse and social sciences department chair because she felt they were cold towards her. Patient was able to express concerns about her care and discussed what has gone well. Patient was calm and communicated with appropriate language. She talked about wanting advocacy due to her social situation. [facility] social work did visit her yesterday. Patient states she has been working with [facility] social sciences department chair as well. She was provided with the Patient Code of Conduct and inappropriate behaviors/actions were reviewed with her. She states she wanted to apologize to the social sciences department chair. Patient states she will abide by the Code of Conduct. She was encouraged to reach out to the CNE, patient advocate mortgage loan counselor of Inpatient Services with concerns. She verbalized that she is aware that her behavior earlier this hospital stay is not accepted and will not be tolerated.
--- NOTE | 2023-12-30 14:43 | PC.NURSE ---
Discharge Note: This morning the patient was provided resources for Homelessness places to stay... I personally filled out an application for her which was requested on her behalf. The information was then faxed to [facility] and the other places were contacted and her information was given to them. The patient was also given a taxi voucher when she was wheeled off the unit @ 1344 to wait for the Taxi in the ER waiting Area. All discharge information was given to the patient. I also called to transfer her prescriptions to [facility]. Her IV was removed. Sandrine JUNIOR BSN
== END 2023-12-30 13:50 | disposition home or self-care (01) ==
LOC: ED 17:49 → MEDSURG 20:37
PROVIDERS: Admitting Provider Family Medicine; Emergency Provider Emergency Medicine; Visit Provider Family Medicine
DX: S22.31XA Fracture of one rib, right side, initial encounter for closed fracture (principal); W19.XXXA Unspecified fall, initial encounter; Z65.9 Problem related to unspecified psychosocial circumstances; F19.10 Other psychoactive substance abuse, uncomplicated; F15.959 Other stimulant use, unspecified with stimulant-induced psychotic disorder, unspecified; R91.8 Other nonspecific abnormal finding of lung field; E87.6 Hypokalemia; D69.6 Thrombocytopenia, unspecified; R41.82 Altered mental status, unspecified; Z59.00 Homelessness unspecified; R07.81 Pleurodynia; D68.00 Von Willebrand disease, unspecified; K44.9 Diaphragmatic hernia without obstruction or gangrene; F40.01 Agoraphobia with panic disorder; F60.89 Other specific personality disorders; E05.90 Thyrotoxicosis, unspecified without thyrotoxic crisis or storm; F32.9 Major depressive disorder, single episode, unspecified; F41.9 Anxiety disorder, unspecified; F43.10 Post-traumatic stress disorder, unspecified; F17.210 Nicotine dependence, cigarettes, uncomplicated
CPT/HCPCS: 36415; 70450; 71260; 72125; 74177; 80053; 80306; 81001; 81003; 82077; 83605; 84443; 85025; 93005; 96374; 96375; 99285; G0378; A9153; A9270; J1885; J2405; Q9967